=== PATIENT | male | born 1940 | race Caucasian/White ===

== ENCOUNTER → 2019-07-03 13:56 | Outpatient (BNVA) | payer MEDICARE, OTHER, SELFPAY | PROVIDERS: Visit Provider Nurse Practitioner Family | DX: I50.9 Heart failure, unspecified (principal); D64.9 Anemia, unspecified; I12.9 Hypertensive chronic kidney disease with stage 1 through stage 4 chronic kidney disease, or unspecified chronic kidney disease; N18.3 Chronic kidney disease, stage 3 (moderate); I48.91 Unspecified atrial fibrillation | CPT/HCPCS: 80053; 80061; 85025 ==

== ENCOUNTER → 2019-07-20 12:05 | Outpatient (BNVA) | payer MEDICARE, OTHER, SELFPAY | PROVIDERS: Visit Provider Internal Medicine Nephrology | DX: N18.9 Chronic kidney disease, unspecified (principal) | CPT/HCPCS: 80069; 82044; 82310; 83970; 85025 ==

== ENCOUNTER → 2020-01-25 09:44 | Outpatient (BNVA) | payer MEDICARE, OTHER, SELFPAY | PROVIDERS: Visit Provider Internal Medicine Nephrology | DX: N18.3 Chronic kidney disease, stage 3 (moderate) (principal); I12.9 Hypertensive chronic kidney disease with stage 1 through stage 4 chronic kidney disease, or unspecified chronic kidney disease; M10.9 Gout, unspecified | CPT/HCPCS: 80053; 80061; 81000; 82043; 82310; 83970; 84100; 84550; 85025 ==

== ENCOUNTER → 2020-01-31 10:07 | Outpatient (BNVA) | payer MEDICARE, OTHER, SELFPAY | PROVIDERS: Visit Provider Nurse Practitioner Family | DX: R73.9 Hyperglycemia, unspecified (principal) | CPT/HCPCS: 83036 ==

== ENCOUNTER 2020-02-19 13:55 | Emergency (ER) | payer MEDICARE, OTHER, SELFPAY ==
[2020-02-19 14:06] VITALS: BP 132/79; PULSE 84; RESP 16; TEMP 36.9; O2SAT 95; BMI 26.4
[2020-02-19 14:31] VITALS: BP 132/79; PULSE 83; RESP 20; O2SAT 95
--- NOTE | 2020-02-19 14:58 | CTR_ITS ---
PROCEDURE INFORMATION: Exam: CT Head Without Contrast Exam date and time: 02/19/2020 4:26 PM Age: 80 years old Clinical indication: Altered mental status/memory loss; Additional info: AMS TECHNIQUE: Imaging protocol: Computed tomography of the head without contrast. Radiation optimization: All CT scans at this facility use at least one of these dose optimization techniques: automated exposure control; mA and/or kV adjustment per patient size (includes targeted exams where dose is matched to clinical indication); or iterative reconstruction. COMPARISON: No relevant prior studies available. RADIATION DOSE METRICS: Total DLP (mGy-cm): 874.42 FINDINGS: Brain: No visible evidence of acute intracranial pathologic process, trauma, or hemorrhage. Mild cerebral arteriosclerosis. Cerebral and cerebral atrophy not inconsistent with the patient's chronological age. No visible generalized cerebral edema or demyelination. Mild small vessel ischemic disease. Unremarkable white matter. No mass effect. Cerebral ventricles: No ventriculomegaly. Bones/joints: Unremarkable. No acute fracture. Paranasal sinuses: Visualized sinuses are unremarkable. No fluid levels. Mastoid air cells: Visualized mastoid air cells are well aerated. Soft tissues: Unremarkable. CT/CT head wo con* [id number] IMPRESSION: No acute intracranial abnormality. Radiation Dose CTDIVOL = (mGy): DLP = 874.42 (mGy-cm)
--- NOTE | 2020-02-19 14:58 | XRR_ITS ---
PROCEDURE INFORMATION: Exam: XR Chest, 1 View Exam date and time: 02/19/2020 3:31 PM Age: 80 years old Clinical indication: Other: Altered mental status; Additional info: AMS TECHNIQUE: Imaging protocol: XR of the chest Views: 1 view. COMPARISON: CR Chest 1 [place] [id number] 07/04/2014 9:56 AM FINDINGS: Lungs: Unremarkable. No consolidation. Pleural space: Unremarkable. No pleural effusion. No pneumothorax. Heart/Mediastinum: Unremarkable. There is cardiomegaly for projection Bones/joints: Unremarkable. XR/XR chest 1V portable [id number] IMPRESSION: No acute findings. Cardiomegaly for projection
--- NOTE | 2020-02-19 14:59 | ECG_ITS ---
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 Measurements Intervals [place] Rate: 80 P: KS: -1 QRS: 95 QRSD: 102 T: -12 QT: 391 QTc: 454 Interpretive Statements ATRIAL FIBRILLATION BORDERLINE RIGHT AXIS DEVIATION [QRS AXIS > 90] MODERATE T-WAVE ABNORMALITY, CONSIDER INFERIOR ISCHEMIA [-0.1+ mV T WAVE IN II/aVF] Compared to ECG 06/04/2015 17:25:04 T-wave abnormality now present Possible ischemia now present Electronically Signed On 02-19-2020 17:58:59 CDT by Mimi Hanna M.D. [email or web address]/[id number] f
[2020-02-19 15:32] VITALS: BP 114/69; PULSE 82; RESP 18; O2SAT 95
[2020-02-19 15:42] LABS: Basophils % 0.5 %; Eosinophils # 0.1 10^3/uL (0.0-0.8); Hematocrit 36.8 % (42.0-52.0); Hemoglobin 11.6 g/dL (11.7-16.6); Lymphocytes # 1.1 10^3/uL (0.8-4.8); Lymphocytes % 13.5 %; Mean Corpuscular HGB Conc 31.5 g/dL (30.0-36.0); Mean Corpuscular Hemoglobin 29.7 pg (28.0-34.0); Mean Corpuscular Volume 94.1 fL (80-94); Mean Platelet Volume 9.6 fL (7.4-10.4); Monocytes # 0.7 10^3/uL (0.2-0.9); Monocytes % 8.5 %; Neutrophils # 6.37 10^3/uL (1.8-7.7); Nucleated Red Blood Cells % 0 %; Platelet Count 452 10^3/cmm (130-400); Red Blood Count 3.91 10^6/uL (4.1-5.3); Red Cell Distribution Width 13.5 % (12.1-15.1); White Blood Count 8.4 10^3/uL (4.0-10.0)
[2020-02-19 15:45] LABS: Add Urine Microscopic? NO
[2020-02-19 16:05] LABS: Alanine Aminotransferase 19 U/L (0-41); Albumin Level 3.9 g/dL (3.5-5.2); Alkaline Phosphatase 239 IU/L (40-130); Anion Gap 18.4 (5-19); Aspartate Amino Transferase 30 U/L (0-40); Blood Urea Nitrogen 31 mg/dL (8-23); C Reactive Protein 32.4 mg/L (0.0-4.9); Calcium 9.5 mg/dL (8.5-10.5); Carbon Dioxide 24 mmol/L (22-29); Chloride 102 mmol/L (98-107); Globulin 3.5 g/dL (1.3-4.6); Glucose 125 mg/dL (65-115); Osmolality Calculated 298 mOsm/kg (285-295); Potassium 4.4 mmol/L (3.5-5.1); Sodium 140 mmol/L (136-145); Total Bilirubin 0.6 mg/dL (0.15-1.2); Total Protein 7.4 g/dL (6.6-8.7)
[2020-02-19 16:06] LABS: Troponin(5th) Baseline 70 ng/L (0-15)
[2020-02-19 16:30] LABS: Bilirubin Urine Neg (Negative); Blood Urine Neg (Negative); Glucose Urine UA Norm (Normal); Ketones Urine Negative (Negative); Leukocyte Esterase Urine Negative (Negative); Nitrate Urine Negative (Negative); Protein Urine Neg (Negative); Specific Gravity, Urine 1.015 (1.005-1.030); Urine Appearance Clear (CLEAR); Urine Color Yellow (Yellow); Urobilinogen Urine Norm (Negative); pH Urine 5 (5-7)
--- NOTE | 2020-02-19 16:36 | ED_ITS ---
HPI - Altered Mental Status General: Chief Complaint: Altered Mental Status Stated Complaint: AMS Time Seen by Provider: 02/19/20 14:20 Source: patient Mode of arrival: EMS History of Present Illness: HPI narrative: Patient was brought in by his with concerns of change in mental status. She states that the symptoms started 3 days ago and consists of the patient raising his hands up. He has also been asking same questions several times. She denies any new focal weakness, no fever, no cough, no difficulty breathing. Patient denies any chest pain or any pain whatsoever. thinks he may have h allucinated a few times. Patient denies any urinary symptoms also. complaint: altered mental status Onset (ago): day(s) (3) Associated symptoms: Reports visual hallucinations; Deny delusions, depression, homicidal ideation, racing thoughts or suicidal idea tion Review of Systems General: Reports: 10 or more systems reviewed and unremarkable except in HPI and below Const: Denies: fever(s), chills or body aches Eyes: Denies: change in vision or blurry vision ENMT: Denies: throat pain, enlarged tonsils, odynophagia, hoarseness, mouth pain or swelling of lips/tongue Card: Denies: palpitations, irregular heart rhythm, edema or swelling of feet/ankles Resp: Denies: dyspnea, productive cough or non-productive cough GI: Denies: abdominal pain, nausea or vomiting : Denies: flank pain, dysuria, urinary frequency, urinary urgency or urinary hesitancy Musc: Denies: neck pain, back pain or extremity swelling Skin/Breast: Denies: rash, pruritus or erythema Neuro: Reports: confusion; Denies: headache(s), numbness in extremities or weakness in extremities Psych: Reports: visual hallucinations; Denies: depression, suicidal ideation or homicidal ideation Endo: Denies: polyuria, polydipsia or tired all the time PFSH ED PFSH: Medical History Afib Anemia CHF (congestive heart failure) CKD (chronic kidney disease) Hypertension RICA on CPAP Prostate CA Surgical History History of total right hip replacement Hx of abdominal prostatectomy Family History Family/Other Cancer Heart disease Social History Smoking and tobacco status: never smoked Second hand smoke exposure: No Alcohol intake: never Household members: spouse Marital status: service: No Current occupational status: retired History of recent travel: No Current gender identity: Male Physical Exam Const: COMMON NORMALS: no acute distress, average body habitus, patient oriented x3, no limitations, healthy appearing, alert and well nourished HENMT: COMMON NORMALS: normocephalic, atraumatic and moist oral mucous membranes HEAD & SCALP: normocephalic and atraumatic Eye: COMMON NORMALS: Equal, round and reactive pupils present, EOMs intact bilaterally, conjunctivae normal and no scleral icterus CONJUNCTIVA: Yes conjunctivae normal PUPIL: Yes Equal, round and reactive pupils present Neck/C-Spine: COMMON NORMALS: no meningeal signs and no JVD Resp: COMMON NORMALS: normal respiratory effort, No retractions, No use of accessory muscles, clear to auscultation bilaterally and percussion normal AUSCULTATION: clear to auscultation bilaterally PERCUSSION: percussion normal Cardio: COMMON NORMALS: no JVD, regular rate, regular rhythm, S1 normal heart sound present, S2 normal heart sound present, No gallops present (Cardio), No clicks present (Cardio), No murmurs present (Cardio), No rub (Cardio) and Peripheral pulses 2+ throughout RATE: regular rate RHYTHM: regular rhythm HEART SOUNDS: S1 normal heart sound present and S2 normal heart sound present PERIPHERAL PULSES: Peripheral pulses 2+ throughout GI: COMMON NORMALS: Normal to inspection, nondistended, normoactive bowel sounds present, Soft to palpation, non-tender, No hepatosplenomegaly present, no masses and no bruits PALPATION: Yes Soft to palpation and Yes No hepatosplenomegaly present Extremity: COMMON NORMALS: normal to inspection, full ROM, capillary refill normal, no calf tenderness and no pedal edema Neuro: COMMON NORMALS: patient oriented x3 SENSORIUM/ORIENTATION: Yes alert MENINGEAL SIGNS: Yes no meningeal signs Psych: THOUGHT CONTENT: No delusions Skin: COMMON NORMALS: no rashes or lesions noted, no wounds, turgor normal, no jaundice, no petechiae and no mottling GENERAL SKIN EXAM: no rashes or lesions noted and turgor normal Course Reevaluation(s): Reevaluation #1: Discussed his lab and imaging findings with the patient and his . Negative for acute findings. Baseline troponin elevated but to has a flat delta. Explained that I cannot find a medical reason for his behavioral change and is possible that this may be the onset of dementia. Advised that he follow-up with his primary care provider for he needs to return for any concerns. and patient voiced understanding and are in agreement with the plan. Time: 18:19 Vital Signs: Vital signs: Vital Signs Temperature 18 F L 02/19/20 18:57 Pulse Rate 69 02/19/20 18:57 Respiratory Rate 15 02/19/20 18:57 Blood Pressure 160/64 02/19/20 18:57 Pulse Oximetry 95 02/19/20 18:57 MDM - Altered Mental Status MDM Narrative: Medical decision making narrative: Patient was brought in by h is for concerns of altered mental status. In the emergency department evaluation was unremarkable, patient is alert and oriented, baseline troponin elevated but he has a flat 2-hour delta. I believe differentials include delirium or onset of dementia. I discussed this with his and asked her to observe him and follow-up with his primary care provider. He is to return for any concerns. Medical Records: Attestation: I reviewed the patient's medical records. Lab Data: Attestation: I reviewed the patient's lab results. Labs: Lab Results 02/19/20 02/19/20 02/19/20 Range/Units 14:22 15:20 15:20 WBC 8.4 (4.0-10.0) 10^3/ uL RBC 3.91 L (4.1-5.3) 10^6/u L Hgb 11.6 L (11.7-16.6) g/dL Hct 36.8 L (42.0-52.0) % MCV 94.1 H (80-94) fL MCH 29.7 (28.0-34.0) pg MCHC 31.5 (30.0-36.0) g/dL RDW 13.5 (12.1-15.1) % Plt Count 452 H (130-400) 10^3/c mm MPV 9.6 (7.4-10.4) fL Neut % (Auto) 76.0 % Lymph % (Auto) 13.5 % [place] % (Auto) 8.5 % Eos % (Auto) 1.0 % Baso % (Auto) 0.5 % Neut # (Auto) 6.37 (1.8-7.7) 10^3/u L Lymph # (Auto) 1.1 (0.8-4.8) 10^3/u L [place] # (Auto) 0.7 (0.2-0.9) 10^3/u L Eos # (Auto) 0.1 (0.0-0.8) 10^3/u L Baso # (Auto) 0.0 (0.0-0.1) 10^3/u L Nucleated RBC % (a uto) 0 % Nucleated RBCs # 0.0 /100WBC Sodium 140 (136-145) mmol/L Potassium 4.4 (3.5-5.1) mmol/L Chloride 102 (98-107) mmol/L Carbon Dioxide 24 (22-29) mmol/L Anion Gap 18.4 (5-19) BUN 31 H (8-23) mg/dL Creatinine 1.8 H (0.7-1.2) mg/dL GFR Calculation Not Reportable Glucose 125 H (65-115) mg/dL Calculated Osmolal ity 298 H (285-295) mOsm/k g Calcium 9.5 (8.5-10.5) mg/dL Total Bilirubin 0.6 (0.15-1.2) mg/dL AST 30 (0-40) U/L ALT 19 (0-41) U/L Alkaline Phosphata se 239 H (40-130) IU/L Troponin T Baselin e (0-15) ng/L Troponin T 120 Min edie (0-15) ng/L Delta Troponin T (0-10) ABS# C-Reactive Protein 32.4 H (0.0-4.9) mg/L Total Protein 7.4 (6.6-8.7) g/dL Albumin 3.9 (3.5-5.2) g/dL Globulin 3.5 (1.3-4.6) g/dL Urine Color Yellow (Yellow) Urine Appearance Clear (CLEAR) Urine pH 5 (5-7) Ur Specific Gravit y 1.015 (1.005-1.030) Urine Protein Neg (Negative) Urine Glucose (UA) Norm (Normal) Urine Ketones Negative (Negative) Urine Blood Neg (Negative) Urine Nitrate Negative (Negative) Urine Bilirubin Neg (Negative) Urine Urobilinogen Norm (Negative) mg/dL Ur Leukocyte Saadia ase Negative (Negative) 02/19/20 02/19/20 Range/Units 15:20 17:15 WBC (4.0-10.0) 10^3/ uL RBC (4.1-5.3) 10^6/u L Hgb (11.7-16.6) g/dL Hct (42.0-52.0) % MCV (80-94) fL MCH (28.0-34.0) pg MCHC (30.0-36.0) g/dL RDW (12.1-15.1) % Plt Count (130-400) 10^3/c mm MPV (7.4-10.4) fL Neut % (Auto) % Lymph % (Auto) % [place] % (Auto) % Eos % (Auto) % Baso % (Auto) % Neut # (Auto) (1.8-7.7) 10^3/u L Lymph # (Auto) (0.8-4.8) 10^3/u L Col[place] # (Auto) (0.2-0.9) 10^3/u L Eos # (Auto) (0.0-0.8) 10^3/u L Baso # (Auto) (0.0-0.1) 10^3/u L Nucleated RBC % (a uto) % Nucleated RBCs # /100WBC Sodium (136-145) mmol/L Potassium (3.5-5.1) mmol/L Chloride (98-107) mmol/L Carbon Dioxide (22-29) mmol/L Anion Gap (5-19) BUN (8-23) mg/dL Creatinine (0.7-1.2) mg/dL GFR Calculation Glucose (65-115) mg/dL Calculated Osmolal ity (285-295) mOsm/k g Calcium (8.5-10.5) mg/dL Total Bilirubin (0.15-1.2) mg/dL AST (0-40) U/L ALT (0-41) U/L Alkaline Phosphata se (40-130) IU/L Troponin T Baselin e 70 H (0-15) ng/L Troponin T 120 Min edie 74.21 H (0-15) ng/L Delta Troponin T 4.21 (0-10) ABS# C-Reactive Protein (0.0-4.9) mg/L Total Protein (6.6-8.7) g/dL Albumin (3.5-5.2) g/dL Globulin (1.3-4.6) g/dL Urine Color (Yellow) Urine Appearance (CLEAR) Urine pH (5-7) Ur Specific Gravit y (1.005-1.030) Urine Protein (Negative) Urine Glucose (UA) (Normal) Urine Ketones (Negative) Urine Blood (Negative) Urine Nitrate (Negative) Urine Bilirubin (Negative) Urine Urobilinogen (Negative) mg/dL Ur Leukocyte Saadia ase (Negative) Imaging Data^: CXR: Attestation: I personally reviewed and interpreted this imaging study as follows: Radiologist's impression: [address] [address] XRay Report Signed Patient: Santiago Brumfield #: [id number] : 8Acct#:[id number] Age/Sex: 80 / MADM Date: 02/19/20 [facility] Dr: Ordering Provider/Ordering MD: Grant Wu MD, [facility] [place] Date of Service: 02/19/20 Procedure(s): XR chest 1V portable [id number] Accession Number(s): [id number] Report Number: [id number] PROCEDURE INFORMATION: Exam: XR Chest, 1 View Exam date and time: 02/19/2020 3:31 PM Age: 80 years old Clinical indication: Other: Altered mental status; Additional info: AMS TECHNIQUE: Imaging protocol: XR of the chest Views: 1 view. COMPARISON: CR Chest 1 [place] [id number] 07/04/2014 9:56 AM FINDINGS: Lungs: Unremarkable. No consolidation. Pleural space: Unremarkable. No pleural effusion. No pneumothorax. Heart/Mediastinum: Unremarkable. There is cardiomegaly for projection Bones/joints: Unremarkable. XR/XR chest 1V portable [id number] IMPRESSION: No acute findings. Cardiomegaly for projection Dictated By:Eric Delong Signed By:Selena Delong Date/Time:02/19/20 1544 DD/ 1543 CT Head: Attestation: I personally reviewed and interpreted this imaging study as follows: Radiologist's impression: [facility] [address] [place] [address] CT Scan Report Signed Patient: Santiago Brumfield #: [id number] : 8Acct#:[id number] Age/Sex: 80 / MADM Date: 02/19/20 Loc: ERRoom/Bed: Attending Dr: Ordering Provider/Ordering MD: Grant Wu MD, [facility] [place] Date of Service: 02/19/20 Procedure(s): CT head wo con* [id number] Accession Number(s): [id number] Report Number: [id number] PROCEDURE INFORMATION: Exam: CT Head Without Contrast Exam date and time: 02/19/2020 4:26 PM Age: 80 years old Clinical indication: Altered mental status/memory loss; Additional info: AMS TECHNIQUE: Imaging protocol: Computed tomography of the head without contrast. Radiation optimization: All CT scans at this facility use at least one of these dose optimization techniques: automated exposure control; mA and/or kV adjustment per patient size (includes targeted exams where dose is matched to clinical indication); or iterative reconstruction. COMPARISON: No relevant prior studies available. RADIATION DOSE METRICS: Total DLP (mGy-cm): 874.42 FINDINGS: Brain: No visible evidence of acute intracranial pathologic process, trauma, or hemorrhage. Mild cerebral arteriosclerosis. Cerebral and cerebral atrophy not inconsistent with the patient's chronological age. No visible generalized cerebral edema or demyelination. Mild small vessel ischemic disease. Unremarkable white matter. No mass effect. Cerebral ventricles: No ventriculomegaly. Bones/joints: Unremarkable. No acute fracture. Paranasal sinuses: Visualized sinuses are unremarkable. No fluid levels. Mastoid air cells: Visualized mastoid air cells are well aerated. Soft tissues: Unremarkable. CT/CT head wo con* [id number] IMPRESSION: No acute intracranial abnormality. Radiation Dose CTDIVOL = (mGy): DLP = 874.42 (mGy-cm) Dictated By:Rbuen Merritt Signed By:Ruben MerrittSignryan Date/Time:02/19/201736 DD/ 35 EKG Data^: EKG 1: Attestation: I personally reviewed and interpreted this EKG as follows: EKG interpretation date: 02/19/20 EKG interpretation time: 15:11 Prior EKG tracings: not available for review Interpretation: Atrial fibrillation. Heart rate [address] changes. No STEMI EKG 2: Attestation: I personally reviewed and interpreted this EKG as follows: EKG interpretation date: 02/19/20 EKG interpretation time: 17:42 Prior EKG tracings: available for review Interpretation: Atrial fibrillation Heart rate [address] changes. No STEMI. No significant change from earlier today. Discharge Plan Discharge Patient Disposition: Home Clinical Impression: Altered mental status Qualifiers: Altered mental status type: delirium Qualified Code(s): R41.0 - Disorientation, unspecified Condition: Stable Prescriptions: Continued ferrous gluconate 324 mg (37.5 mg iron) tablet 324 mg PO BID RF: 0 acetaminophen [Tylenol Extra Strength] 500 mg tablet 1,000 mg PO PRN RF: 0 cetirizine 10 mg tablet 10 mg PO DAILY PRN (Reason: Allergy Symptoms) RF: 0 omega-3 fatty acids 1,000 mg capsule 2,000 mg PO DAILY RF: 0 ascorbic acid (vitamin C) 1,000 mg tablet 1 gm PO DAILY RF: 0 allopurinol 100 mg tablet 100 mg PO DAILY Qty: 30 RF: 5 omeprazole 20 mg capsule,delayed release(DR/EC) 20 mg PO BID Qty: 60 RF: 5 lisinopril 10 mg tablet 10 mg PO DAILY Qty: 30 RF: 5 fluticasone propionate 50 mcg/actuation spray,suspension 2 spray INTRANASAL DAILY PRN (Reason: allergy symptoms) Qty: 9.9 RF: 5 metoprolol succinate 25 mg tablet extended release 24 hr 12.5 mg PO DAILY Qty: 45 RF: 1 furosemide 40 mg tablet 40 mg PO QAM RF: 0 Discharge Orders: Discharge Order (Routine); Ordered 02/19/20 Ordered By: Grant Wu Discharge Diet: Usual diet Discharge Activity: Increase activity as tolerated Patient Instructions: Acute Delirium (ED) Activity Restrictions/Additional Instructions: Return for any new or worsening symptoms. Follow-up with his primary care provider within 3 days. Observe him to see any changes in his behavior, if he worsens or you have any concerns please return for further evaluation Discharge Date/Time: 02/19/20 19:00 Coding Level of Care Code ED Etl Data Architect for Georges Mensah
--- NOTE | 2020-02-19 16:59 | ECG_ITS ---
[facility] Test Date: 2020-02-19 Pat Name: Santiago Brumfield Department: Room: Gender: Male Drama Director: : 1940 Requested By: Grant Wu I Order Number: [id number] Rosa MD: Mimi Hanna M.D. Measurements Intervals [place] Rate: 82 P: MD: -1 QRS: 83 QRSD: 94 T: -40 QT: 380 QTc: 445 Interpretive Statements SUPRAVENTRICULAR RHYTHM LOW QRS VOLTAGE IN EXTREMITY LEADS [QRS DEFLECTION < 0.5 mV IN LIMB LEADS] ST DEVIATION AND MODERATE T-WAVE ABNORMALITY, CONSIDER INFERIOR ISCHEMIA [-0.1+ mV T WAVE IN II/aVF] Compared to ECG 02/19/2020 15:11:31 Supraventricular rhythm now present Low QRS voltage now present Atrial fibrillation no longer present T-wave abnormality still present Possible ischemia still present Electronically Signed On 02-19-2020 18:11:28 CDT by Mimi Hanna M.D. [email or web address]/[id number] sunil
[2020-02-19 17:40] VITALS: BP 126/74; PULSE 79; RESP 18; O2SAT 95
[2020-02-19 17:43] LABS: Troponin 5 2HR 74.21 ng/L (0-15); Troponin 5 2HR Delta 4.21 ABS# (0-10)
[2020-02-19 18:57] VITALS: BP 160/64; PULSE 69; RESP 15; TEMP -7.7; TEMP 18; O2SAT 95
== END 2020-02-19 19:00 | disposition home or self-care (01) ==
PROVIDERS: Emergency Provider Family Medicine
DX: R41.0 Disorientation, unspecified (principal); I48.91 Unspecified atrial fibrillation; I11.0 Hypertensive heart disease with heart failure; I50.9 Heart failure, unspecified; Z85.46 Personal history of malignant neoplasm of prostate
CPT/HCPCS: 12345; 36415; 70450; 71045; 80053; 81003; 84484; 85025; 86140; 93005; 99283

== ENCOUNTER 2021-12-05 06:04 | Outpatient (CLI) | payer MEDICARE, OTHER, SELFPAY ==
--- NOTE | 2021-12-05 06:49 | CT_ITS ---
WS: [id number] CT ABDOMEN AND PELVIS NONCONTRAST HISTORY: ABDOMINAL SWELLING TECHNIQUE: Imaging performed through the abdomen and pelvis. Coronal and sagittal reformats are submi tted. All CT scans at [facility] use at least one of these dose optimization techniques: auto mated exposure control; mA and/or kV adjustment per patient size (includes targeted exams where dose is matched to clinical indication); or iterative reconstruction. DLP: 1205.03 mGy.cm COMPARISON: 07/01/2009 Lower thorax: Small bilateral pleural effusions with compressive atelectasis at the lung bases. Moder ate enlargement of the heart. Liver: Small liver with a nodular surface. No bile duct dilatation. Gallbladder: Present and difficult to visualize as there is a large amount of adjacent fluid of simil ar attenuation. Pancreas: Normal size and attenuation. Normal pancreatic duct. No pancreatitis or mass. Spleen: Normal. Adrenal glands: Normal. No mass. Right kidney: Mild atrophy of the RIGHT kidney. Kidney measures 8.5 cm in length. No mass or obstruct ion. Left kidney: Mild atrophy of the LEFT kidney. Kidney measures 7.8 cm in length. No obstruction. Aorta: Mild atherosclerosis abdominal aorta with no aneurysm. There is a very large amount of intraperitoneal fluid. Fluid surrounds the visceral organs and extend s into the lesser sac and through the mesentery. There are a few areas of the visualized omentum with extensive perinephric with increased stranding and possible caking of omental carcinomatosis. GI tract: Stomach is moderately well distended with contrast. No small bowel obstruction. The small b owel and colon are being displaced into the central abdomen by the large amount of fluid. No obstruct ion. Abdominal wall: Marked protrusion of the abdominal wall due to the large amount of ascites. Soft tiss ue edema and anasarca. Pelvis: Free fluid extends into the pelvis. There is additional anasarca in the soft tissues of the p antolin. Portions of the pelvis including the rectum and distal colon or be obscured by artifact relate d to prostate seed implants and the RIGHT hip arthroplasty. Osseous structures: Stable sclerotic lesion in the LEFT pubic rami. Sclerotic lesion extends in the L EFT parasymphyseal region and along the inferior ramus. Patient does have a history of prostate cance r this is probably related to prostate cancer. Similar to the study of 07/01/2019. CT/CT abdomen pelvis wo con [id number] IMPRESSION: 1. Large amount of peritoneal ascites. On this unenhanced study there are casper ges that are suspicious for peritoneal carcinomatosis. This omental thickening could also be related to infiltrating edema. This would be better evaluated on a follow-up CT with IV contrast. Paracentesis with evaluation of the fluid for neoplastic disease recommended. 2. Liver appears cirrhotic. 3. Small bilateral pleural effusions. 4. Cardiomegaly. 5. Mild bilateral renal atrophy. 6. Stable sclerotic lesion in the LEFT parasymphyseal region and LEFT inferior pubic rami. 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 Similar to 2009.
[2021-12-05] MEDS: barium sulfate 450 mL Oral Susp PO (08:03)
== END 2021-12-05 06:05 | disposition home or self-care (01) ==
LOC: RAD 06:05
PROVIDERS: PCP Nurse Practitioner Family; Visit Provider Nurse Practitioner Family
DX: R19.07 Generalized intra-abdominal and pelvic swelling, mass and lump (principal); I51.7 Cardiomegaly; J90 Pleural effusion, not elsewhere classified; N26.1 Atrophy of kidney (terminal)
CPT/HCPCS: 74176

== ENCOUNTER → 2021-12-09 10:55 | Outpatient (BNVA) | payer MEDICARE, OTHER, SELFPAY | PROVIDERS: PCP Nurse Practitioner Family; Visit Provider Surgery | DX: R18.8 Other ascites (principal); D64.9 Anemia, unspecified; R97.8 Other abnormal tumor markers | CPT/HCPCS: 36415; 80076; 83615; 86301; 99204 ==

== ENCOUNTER 2021-12-10 11:49 | Day surgery (SDC) | payer MEDICARE, OTHER, SELFPAY ==
[2021-12-09 13:45] VITALS: BMI 28.5
[2021-12-10 12:05] VITALS: BP 109/71; PULSE 75; RESP 18; TEMP 36.4; O2SAT 96
--- NOTE | 2021-12-10 12:17 | US_ITS ---
WS: [id number] ULTRASOUND-GUIDED THERAPEUTIC AND DIAGNOSTIC PARACENTESIS Procedure, risks, and complications have been explained to the patient. Consent is obtained. Utilizing aseptic technique and 1% buffered lidocaine, a small dermatome was made through which a 5 F rench Yueh catheter was inserted. Approximately 8000 ml of clear peritoneal fluid was obtained witho ut difficulty. No complications encountered. Peritoneal fluid specimen collected for analysis. US/US paracentesis abd w [id number] IMPRESSION: Uncomplicated paracentesis yielding 8000 ml of peritoneal fluid. Additional flu id remains. No additional fluid removed today as this is the patient's first pa racentesis. Peritoneal fluid specimen collected for analysis.
[2021-12-10 12:53] LABS: INR 1.09 (0.8-1.2)
[2021-12-10 14:32] LABS: Apprearance, Body Fluid CLEAR; Color, Body Fluid YELLOW
[2021-12-10 14:33] LABS: Body Fluid WBC 0 /uL; RBC, Body Fluid 0 10^3/uL
[2021-12-10 15:12] LABS: Fluid Alkaline Phos. 20 IU/L
[2021-12-10 15:13] LABS: Albumin Body Fluid 2.3 g/dL; Amylase Body Fluid 22 U/L; Cholesterol Body Fluid 59 mg/dL (0-200); LDH Body Fluid 77 U/L; PATH Referral YES; Total Protein Body Fluid 3.3 g/dL; Triglycerides Body Fluid 32 mg/dL (0-150); Uric Acid Body Fluid 4 mg/dL
[2021-12-10 20:17] LABS: Cyto Order Verification Order Verified
== END 2021-12-10 14:27 | disposition home or self-care (01) ==
LOC: GILAB 11:52
PROVIDERS: Radiology Diagnostic Radiology; PCP Nurse Practitioner Family; Visit Provider Surgery
PROC: (CPT 49082; principal; 2021-12-10 13:15)
DX: R18.8 Other ascites (principal)
CPT/HCPCS: 36415; 49083; 80503; 82042; 82150; 82378; 82465; 82945; 83615; 83986; 84075; 84157; 84315; 84478; 84560; 85610; 87015; 87070; 87075; 87116; 87205; 87206; 87801; 88108; 88305; 89050

== ENCOUNTER 2022-02-23 08:36 | Day surgery (SDC) | payer MEDICARE, OTHER, SELFPAY ==
[2022-02-20 13:37] VITALS: BMI 25.1
--- NOTE | 2022-02-23 08:58 | US_ITS ---
WS: [id number] Abdominal ultrasound, limited. History: Evaluate for ascites. Comparison: 12/10/2021 All 4 quadrants are imaged by ultrasound to evaluate for ascites. Large amount of intraperitoneal flu id. Cirrhotic appearing liver. US/US abdomen limited [id number] IMPRESSION: Large amount of ascites.
[2022-02-23 09:22] VITALS: BP 112/74; PULSE 70; RESP 18; TEMP 36.5; O2SAT 96
[2022-02-23 11:30] VITALS: BP 103/60; PULSE 70; RESP 16; O2SAT 96
--- NOTE | 2022-02-23 11:58 | PM.ACPR ---
Acute Procedures Paracentesis: Time out performed: Yes Indication: Ascites Procedure: therapeutic paracentesis Location: LLQ Local anesthetic used: lidocaine 1% Amount of anesthesia used (ml): 5 Preparation: sterile prep and drape and 11 blade used to make michael in skin Amount of fluid obtained (ml): 13,000 Fluid: clear Post procedure exam: awake, alert, normal BP, normal HR and normal SpO2 Patient tolerated procedure: well and no complications
== END 2022-02-23 11:50 | disposition home or self-care (01) ==
PROVIDERS: PCP Nurse Practitioner Family; Visit Provider Internal Medicine
PROC: (CPT 49082; principal; 2022-02-23 09:30)
DX: R18.8 Other ascites (principal)
CPT/HCPCS: 49082; 76705

== ENCOUNTER 2022-04-13 16:03 | Observation (INO) | payer MEDICARE, OTHER, SELFPAY ==
[2022-04-13] VITALS (11 sets, daily range): BP systolic 107–130; BP diastolic 68–78; PULSE 71–76; RESP 14–25; TEMP 36.1–36.7; O2SAT 87–98; BMI 27.0; BMI 27.2
--- NOTE | 2022-04-13 16:10 | ECG_ITS ---
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 Measurements Intervals [place] Rate: 75 P: 138 WA: 68 QRS: 264 QRSD: 102 T: 102 QT: 391 QTc: 437 Interpretive Statements SINUS RHYTHM WITH SHORT WA INTERVAL INCOMPLETE RIGHT BUNDLE BRANCH BLOCK [90+ ms QRS DURATION, TERMINAL R IN V1/V2, 40+ ms S IN I/aVL/V4/V5/V6] POSSIBLE ANTERIOR MYOCARDIAL INFARCTION , OF INDETERMINATE AGE [30 ms Q WAVE IN V3/V4, OR R < 0.2 mV IN V4] Compared to ECG 02/19/2020 17:42:00 Short WA interval now present Incomplete right bundle-branch block now present Myocardial infarct finding now present Supraventricular rhythm no longer present Possible ischemia no longer present Electronically Signed On 04-13-2022 18:17:39 SENIOR PRODUCT DEVELOPMENT SCIENTIST by Harry Alberts M.D. [id number]
--- NOTE | 2022-04-13 16:17 | XRR_ITS ---
PROCEDURE INFORMATION: Exam: XR Chest Exam date and time: 04/13/2022 5:42 PM Age: 82 years old Clinical indication: Cough; Additional info: Dyspnea/cough TECHNIQUE: Imaging protocol: Radiologic exam of the chest. Views: 1 view. COMPARISON: CR XR chest 1V portable [id number] 02/19/2020 3:21 PM FINDINGS: Lungs: No consolidation. Pleural spaces: Bilateral small volume pleural effusions. No pneumothorax. Heart/Mediastinum: Mild cardiomegaly. Bones/joints: Unremarkable. XR/XR chest 1V portable [id number] IMPRESSION: Mild cardiomegaly and bilateral small volume pleural effusions.
--- NOTE | 2022-04-13 16:45 | US_ITS ---
WS: [id number] Abdominal ultrasound, limited. History: Evaluate for ascites. Comparison: 02/23/2022 All 4 quadrants are imaged by ultrasound to evaluate for ascites. There is a large amount of peritone al ascites within all 4 quadrants of the abdomen. US/US abdomen lmt fluid [id number] IMPRESSION: Large amount of peritoneal ascites.
--- NOTE | 2022-04-13 16:45 | W.ED.SOB ---
Documented by User: Martin Souza DO 04/15/22 07:45 HPI - SOB/Dyspnea General: Chief Complaint: Shortness of Breath/Dyspnea Stated Complaint: SOB Time Seen by Provider: 04/13/22 16:16 Source: patient and family Mode of arrival: ambulatory History of Present Illness: HPI Narrative: 82-year-old male presents to the emergency room with complaints of significant abdominal distention difficulty breathing. Patient has end-stage renal disease and and liver failure. He has a history of CHF he is gained significant weight in the last couple of days. He has been evaluated for transplant but did not meet eligibility because of his age. MD elicited complaint: shortness of breath and cough Pertinent past history: COPD Onset (ago): hour(s) Timing: constant Severity: severe Exacerbating factors: lying flat and exertion Relieving factors: rest Known history of: congestive heart failure and other (End-stage liver disease, end-stage renal disease) Associated symptoms: Reports abdominal pain; Deny chest congestion, chest pain, cough, diaphoresis, dizziness, extremity pain, fever(s), hemoptysis, lightheadedness, myalgias, nausea, orthopnea, palpitations, paresthesias, polydipsia, polyuria, rash, sense of impending doom, syncope or vomiting Treatment prior to arrival: none Review of Systems Const: Denies: fever(s), chills, fatigue, malaise or diaphoresis ENMT: Denies: throat pain, ear or mastoid pain, nasal discharge or nasal congestion Card: Denies: chest pain, palpitations, lightheadedness, syncope or orthopnea Resp: Reports: dyspnea; Denies: productive cough, non-productive cough, wheezing, hemoptysis or chest congestion GI: Reports: abdominal pain; Denies: nausea or vomiting : Denies: flank pain, dysuria, urinary frequency or urinary urgency Musc: Denies: neck pain, back pain or extremity pain Skin/Breast: Denies: rash or pruritus Neuro: Denies: dizziness Endo: Denies: polyuria or polydipsia PFSH ED PFSH: Medical History Abdominal ascites Abdominal ascites Afib Anemia CHF (congestive heart failure) CKD (chronic kidney disease) Hypertension Idiopathic cirrhosis Liver cirrhosis RICA on CPAP Prostate CA Surgical History History of colonoscopy History of total right hip replacement Hx of abdominal prostatectomy Hx of knee surgery Family History Family/Other Cancer Heart disease Social History Smoking and tobacco status: never smoked Second hand smoke exposure: No Alcohol intake: never Household members: spouse Marital status: service: No Current occupational status: retired History of recent travel: No Current gender identity: Male Physical Exam Const: GENERAL APPEARANCE: cooperative and comfortable ORIENTATION/CONSCIOUSNESS: Yes awake, Yes oriented to person, Yes oriented to place and Yes oriented to time HENMT: COMMON NORMALS: normocephalic, atraumatic and hearing grossly normal bilaterally HEAD & SCALP: normocephalic and atraumatic Resp: COMMON NORMALS: normal respiratory effort, No retractions, No use of accessory muscles and clear to auscultation bilaterally AUSCULTATION: clear to auscultation bilaterally Cardio: COMMON NORMALS: regular rate, regular rhythm and No murmurs present (Cardio) RATE: regular rate RHYTHM: regular rhythm GI: INSPECTION: Yes abdominal distension and Yes Fluid wave present PERCUSSION: dullness to percussion and Fluid wave present Extremity: COMMON NORMALS: normal to inspection, capillary refill normal, no clubbing, cyanosis or edema, no calf tenderness and no pedal edema Neuro: SENSORIUM/ORIENTATION: Yes oriented to person, Yes oriented to place and Yes oriented to time Skin: COMMON NORMALS: no rashes or lesions noted GENERAL SKIN EXAM: no rashes or lesions noted Course Vital Signs: Vital signs: Vital Signs Temperature 98.0 F 04/14/22 12:00 Pulse Rate 76 04/14/22 16:27 Respiratory Rate 16 04/14/22 12:00 Blood Pressure 106/66 04/14/22 12:00 Pulse Oximetry 95 04/14/22 12:00 Oxygen Delivery Me thod 04/14/22 12:00 Oxygen Flow Rate 2 04/13/22 16:17 MDM - SOB/Dyspnea Medical Decision Making Care signed out to Dr. Molina at change of shift. See final notes for diagnosis and disposition. Lab Data 04/13/22 16:40 04/13/22 16:40 Labs/Radiology: Radiology Impressions Chest X-Ray 04/13/22 16:17 IMPRESSION: Mild cardiomegaly and bilateral small volume pleural effusions. Abdomen Ultrasound 04/13/22 16:45 IMPRESSION: Large amount of peritoneal ascites. Paracentesis Ultrasound 04/14/22 19:53 IMPRESSION: Uncomplicated [place] [id number] [place] Laboratory Results WBC 7.9 10^3/uL (4.0-10.0) 04/13/22 16:40 RBC 3.00 10^6/uL (4.1-5.3) L 04/13/22 16:40 Hgb 9.4 g/dL (11.7-16.6) L 04/13/22 16:40 Hct 29.8 % (42.0-52.0) L 04/13/22 16:40 MCV 99.3 fl (80-94) H 04/13/22 16:40 MCH 31.3 pg (28.0-34.0) 04/13/22 16:40 MCHC 31.5 g/dL (30.0-36.0) 04/13/22 16:40 RDW 15.2 % (12.1-15.1) H 04/13/22 16:40 Plt Count 298 10^3/cmm (130-400) 04/13/22 16:40 MPV 10.2 fL (7.4-10.4) 04/13/22 16:40 Neut % (Auto) 75.4 % 04/13/22 16:40 Lymph % (Auto) 12.7 % 04/13/22 16:40 [place] % (Auto) 7.6 % 04/13/22 16:40 Eos % (Auto) 3.2 % 04/13/22 16:40 Baso % (Auto) 0.6 % 04/13/22 16:40 Neut # (Auto) 5.98 10^3/uL (1.8-7.7) 04/13/22 16:40 Lymph # (Auto) 1.0 10^3/uL (0.8-4.8) 04/13/22 16:40 [place] # (Auto) 0.6 10^3/uL (0.2-0.9) 04/13/22 16:40 Eos # (Auto) 0.3 10^3/uL (0.0-0.8) 04/13/22 16:40 Baso # (Auto) 0.1 10^3/uL (0.0-0.1) 04/13/22 16:40 Nucleated RBC % (auto) 0 % 04/13/22 16:40 Nucleated RBCs # 0.0 /100WBC 04/13/22 16:40 PT 14.70 SECONDS (12.1-14.9) 04/13/22 17:25 INR 1.12 (0.8-1.2) 04/13/22 17:25 APTT 28.5 SECONDS (23.9-36.7) 04/13/22 17:25 Specimen Type Arterial 04/13/22 16:44 Sample Site Radial, left 04/13/22 16:44 ABG pH 7.41 (7.35-7.45) 04/13/22 16:44 ABG pCO2 40.4 mmHg (35-45) 04/13/22 16:44 ABG pO2 76.6 mmHg (80.0-100.0) L 04/13/22 16:44 ABG HCO3 25.5 mmol/L (22-26) 04/13/22 16:44 ABG O2 Saturation 97.2 04/13/22 16:44 ABG Base Excess 0.7 mmol/L (-2.0-2.0) 04/13/22 16:44 Hunter Test Pos 04/13/22 16:44 A-a O2 Gradient 3.1 mmHg (5-10) L 04/13/22 16:44 Hematocrit 28.9 % (42-52) L 04/13/22 16:44 Hgb O2 Saturation 95.5 % (95-100) 04/13/22 16:44 Carboxyhemoglobin 1.2 %THgb (0.4-20.1) 04/13/22 16:44 Methemoglobin 0.4 % (0.4-1.5) 04/13/22 16:44 Total Hemoglobin 9.4 g/dL (14-18) L 04/13/22 16:44 Sodium 136.0 mmol/L (131-143) 04/13/22 16:44 Potassium 3.9 mmol/L (3.5-5.0) 04/13/22 16:44 Glucose 117.0 mg/dL (70-115) H 04/13/22 16:44 Ionized Calcium 1.2 mmol/L (1.1-1.4) 04/13/22 16:44 O2 Delivery Device Room air 04/13/22 16:44 FiO2 21.0 % 04/13/22 16:44 Aircraft Body Repairer ID Cak 04/13/22 16:44 Sodium 137 mmol/L (136-145) 04/13/22 16:40 Potassium 3.9 mmol/L (3.5-5.1) 04/13/22 16:40 Chloride 100 mmol/L (98-107) 04/13/22 16:40 Carbon Dioxide 27 mmol/L (22-29) 04/13/22 16:40 Anion Gap 13.9 (5-19) 04/13/22 16:40 BUN 24 mg/dL (8-23) H 04/13/22 16:40 Creatinine 1.2 mg/dL (0.7-1.2) 04/13/22 16:40 GFR Calculation Not Reportable 04/13/22 16:40 Glucose 107 mg/dL (65-115) 04/13/22 16:40 Calculated Osmolality 289 mOsm/kg (285-295) 04/13/22 16:40 Lactic Acid 1.8 mmol/L (0.5-2.2) 04/13/22 16:40 Calcium 8.9 mg/dL (8.5-10.5) 04/13/22 16:40 Total Bilirubin 0.4 mg/dL (0.15-1.2) 04/13/22 16:40 AST 8 U/L (0-40) 04/13/22 16:40 ALT < 5 U/L (0-41) 04/13/22 16:40 Alkaline Phosphatase 213 U/L (40-130) H 04/13/22 16:40 Ammonia 20 umol/L (16-60) 04/13/22 17:10 Creatine Kinase 54 U/L (39-308) 04/13/22 16:40 Troponin T Baseline 82 ng/L (0-15) H 04/13/22 16:40 NT-Pro-B Natriuret Pep 20801 pg/mL (0-450) H 04/13/22 16:40 Total Protein 5.9 g/dL (6.6-8.7) L 04/13/22 16:40 Albumin 3.1 g/dL (3.5-5.2) L 04/13/22 16:40 Globulin 2.8 g/dL (1.3-4.6) 04/13/22 16:40 Fluid Color Yellow 04/13/22 10:15 Fluid Appearance Clear 04/13/22 10:15 Fluid Specific Grav 1.010 04/13/22 10:15 Fluid WBC 126 /uL 04/13/22 10:15 Fluid RBC 0 10^3/uL 04/13/22 10:15 Fld Polynuclear WBCs # 0.016 04/13/22 10:15 Fld Polynuclear WBCs % 12.700 % 04/13/22 10:15 Fl Mononucl WBCs #(Auto) 0.110 04/13/22 10:15 Fl Mononuclear % Auto 87.300 % 04/13/22 10:15 Fluid Albumin 1.9 g/dL 04/13/22 10:15 Discharge Plan Discharge Patient Disposition: Admitted As Inpatient Admit Provider: Brigido Low Clinical Impression: Idiopathic cirrhosis, Abdominal ascites, Dyspnea Condition: Stable Discharge Diet: Regular Coding Level of Care Code ED Production Machinist for Chg Fwd Exam Detailed Documented by User: Kavitha Molina MD 04/13/22 18:19 HPI - SOB/Dyspnea General: Chief Complaint: Shortness of Breath/Dyspnea Stated Complaint: SOB Time Seen by Provider: 04/13/22 16:16 PFSH ED PFSH: Medical History Abdominal ascites Abdominal ascites Afib Anemia CHF (congestive heart failure) CKD (chronic kidney disease) Hypertension Idiopathic cirrhosis Liver cirrhosis RICA on CPAP Prostate CA Surgical History History of colonoscopy History of total right hip replacement Hx of abdominal prostatectomy Hx of knee surgery Family History Family/Other Cancer Heart disease Social History Smoking and tobacco status: never smoked Second hand smoke exposure: No Alcohol intake: never Household members: spouse Marital status: service: No Current occupational status: retired History of recent travel: No Current gender identity: Male Course Vital Signs: Vital signs: Vital Signs Temperature 98.0 F 04/14/22 12:00 Pulse Rate 76 04/14/22 16:27 Respiratory Rate 16 04/14/22 12:00 Blood Pressure 106/66 04/14/22 12:00 Pulse Oximetry 95 04/14/22 12:00 Oxygen Delivery Me thod 04/14/22 12:00 Oxygen Flow Rate 2 04/13/22 16:17 MDM - SOB/Dyspnea Medical Decision Making Care signed out to Dr. Molina at change of shift. See final notes for diagnosis and disposition. Patient presents here with abdominal swelling from ascites likely from his cirrhosis that is causing shortness of breath will admit at this time for his dyspnea and he does not need paracentesis Lab Data 04/13/22 16:40 04/13/22 16:40 Labs/Radiology: Radiology Impressions Chest X-Ray 04/13/22 16:17 IMPRESSION: Mild cardiomegaly and bilateral small volume pleural effusions. Abdomen Ultrasound 04/13/22 16:45 IMPRESSION: Large amount of peritoneal ascites. Paracentesis Ultrasound 04/14/22 19:53 IMPRESSION: Uncomplicated ultrasound[place] [id number] [place] Laboratory Results WBC 7.9 10^3/uL (4.0-10.0) 04/13/22 16:40 RBC 3.00 10^6/uL (4.1-5.3) L 04/13/22 16:40 Hgb 9.4 g/dL (11.7-16.6) L 04/13/22 16:40 Hct 29.8 % (42.0-52.0) L 04/13/22 16:40 MCV 99.3 fl (80-94) H 04/13/22 16:40 MCH 31.3 pg (28.0-34.0) 04/13/22 16:40 MCHC 31.5 g/dL (30.0-36.0) 04/13/22 16:40 RDW 15.2 % (12.1-15.1) H 04/13/22 16:40 Plt Count 298 10^3/cmm (130-400) 04/13/22 16:40 MPV 10.2 fL (7.4-10.4) 04/13/22 16:40 Neut % (Auto) 75.4 % 04/13/22 16:40 Lymph % (Auto) 12.7 % 04/13/22 16:40 [place] % (Auto) 7.6 % 04/13/22 16:40 Eos % (Auto) 3.2 % 04/13/22 16:40 Baso % (Auto) 0.6 % 04/13/22 16:40 Neut # (Auto) 5.98 10^3/uL (1.8-7.7) 04/13/22 16:40 Lymph # (Auto) 1.0 10^3/uL (0.8-4.8) 04/13/22 16:40 [place] # (Auto) 0.6 10^3/uL (0.2-0.9) 04/13/22 16:40 Eos # (Auto) 0.3 10^3/uL (0.0-0.8) 04/13/22 16:40 Baso # (Auto) 0.1 10^3/uL (0.0-0.1) 04/13/22 16:40 Nucleated RBC % (auto) 0 % 04/13/22 16:40 Nucleated RBCs # 0.0 /100WBC 04/13/22 16:40 PT 14.70 SECONDS (12.1-14.9) 04/13/22 17:25 INR 1.12 (0.8-1.2) 04/13/22 17:25 APTT 28.5 SECONDS (23.9-36.7) 04/13/22 17:25 Specimen Type Arterial 04/13/22 16:44 Sample Site Radial, left 04/13/22 16:44 ABG pH 7.41 (7.35-7.45) 04/13/22 16:44 ABG pCO2 40.4 mmHg (35-45) 04/13/22 16:44 ABG pO2 76.6 mmHg (80.0-100.0) L 04/13/22 16:44 ABG HCO3 25.5 mmol/L (22-26) 04/13/22 16:44 ABG O2 Saturation 97.2 04/13/22 16:44 ABG Base Excess 0.7 mmol/L (-2.0-2.0) 04/13/22 16:44 Hunter Test Pos 04/13/22 16:44 A-a O2 Gradient 3.1 mmHg (5-10) L 04/13/22 16:44 Hematocrit 28.9 % (42-52) L 04/13/22 16:44 Hgb O2 Saturation 95.5 % (95-100) 04/13/22 16:44 Carboxyhemoglobin 1.2 %THgb (0.4-20.1) 04/13/22 16:44 Methemoglobin 0.4 % (0.4-1.5) 04/13/22 16:44 Total Hemoglobin 9.4 g/dL (14-18) L 04/13/22 16:44 Sodium 136.0 mmol/L (131-143) 04/13/22 16:44 Potassium 3.9 mmol/L (3.5-5.0) 04/13/22 16:44 Glucose 117.0 mg/dL (70-115) H 04/13/22 16:44 Ionized Calcium 1.2 mmol/L (1.1-1.4) 04/13/22 16:44 O2 Delivery Device Room air 04/13/22 16:44 FiO2 21.0 % 04/13/22 16:44 Aircraft Body Repairer ID Cak 04/13/22 16:44 Sodium 137 mmol/L (136-145) 04/13/22 16:40 Potassium 3.9 mmol/L (3.5-5.1) 04/13/22 16:40 Chloride 100 mmol/L (98-107) 04/13/22 16:40 Carbon Dioxide 27 mmol/L (22-29) 04/13/22 16:40 Anion Gap 13.9 (5-19) 04/13/22 16:40 BUN 24 mg/dL (8-23) H 04/13/22 16:40 Creatinine 1.2 mg/dL (0.7-1.2) 04/13/22 16:40 GFR Calculation Not Reportable 04/13/22 16:40 Glucose 107 mg/dL (65-115) 04/13/22 16:40 Calculated Osmolality 289 mOsm/kg (285-295) 04/13/22 16:40 Lactic Acid 1.8 mmol/L (0.5-2.2) 04/13/22 16:40 Calcium 8.9 mg/dL (8.5-10.5) 04/13/22 16:40 Total Bilirubin 0.4 mg/dL (0.15-1.2) 04/13/22 16:40 AST 8 U/L (0-40) 04/13/22 16:40 ALT < 5 U/L (0-41) 04/13/22 16:40 Alkaline Phosphatase 213 U/L (40-130) H 04/13/22 16:40 Ammonia 20 umol/L (16-60) 04/13/22 17:10 Creatine Kinase 54 U/L (39-308) 04/13/22 16:40 Troponin T Baseline 82 ng/L (0-15) H 04/13/22 16:40 NT-Pro-B Natriuret Pep 05292 pg/mL (0-450) H 04/13/22 16:40 Total Protein 5.9 g/dL (6.6-8.7) L 04/13/22 16:40 Albumin 3.1 g/dL (3.5-5.2) L 04/13/22 16:40 Globulin 2.8 g/dL (1.3-4.6) 04/13/22 16:40 Fluid Color Yellow 04/13/22 10:15 Fluid Appearance Clear 04/13/22 10:15 Fluid Specific Grav 1.010 04/13/22 10:15 Fluid WBC 126 /uL 04/13/22 10:15 Fluid RBC 0 10^3/uL 04/13/22 10:15 Fld Polynuclear WBCs # 0.016 04/13/22 10:15 Fld Polynuclear WBCs % 12.700 % 04/13/22 10:15 Fl Mononucl WBCs #(Auto) 0.110 04/13/22 10:15 Fl Mononuclear % Auto 87.300 % 04/13/22 10:15 Fluid Albumin 1.9 g/dL 04/13/22 10:15 Discharge Plan Discharge Patient Disposition: Admitted As Inpatient Admit Provider: Brigido Low Clinical Impression: Idiopathic cirrhosis, Abdominal ascites, Dyspnea Condition: Stable Discharge Diet: Regular Coding Level of Care Code ED Production Machinist for Chg Fwd Exam Detailed
[2022-04-13 16:56] LABS: ABG PCO2 40.4 mmHg (35-45); ABG PH Result 7.41 (7.35-7.45); Alveolar-Arterial Oxygen Gradi 3.1 mmHg (5-10); Arterial Blood Gas Hematocrit 28.9 % (42-52); Base Excess ABG 0.7 mmol/L (-2.0-2.0); Blood Gas Allen Test Pos; Blood Gas Operator Identificat CAK; Blood Gas Sample Site Radial, left; Blood Gas Sample Type Arterial; Carboxyhemoglobin 1.2 %THgb (0.4-20.1); HCO3 ABG 25.5 mmol/L (22-26); HGB O2 Sat 95.5 % (95-100); Ionized Calcium Level - ABG 1.2 mmol/L (1.1-1.4); Methemoglobin 0.4 % (0.4-1.5); Oxygen Device ROOM AIR; Oxygen Saturation ABG 97.2; PO2 ABG 76.6 mmHg (80.0-100.0); Potassium Level - ABG 3.9 mmol/L (3.5-5.0); Total Hemoglobin 9.4 g/dL (14-18)
[2022-04-13 17:03] LABS: Basophils # 0.1 10^3/uL (0.0-0.1); Basophils % 0.6 %; Eosinophils # 0.3 10^3/uL (0.0-0.8); Eosinophils % 3.2 %; Hematocrit 29.8 % (42.0-52.0); Hemoglobin 9.4 g/dL (11.7-16.6); Lymphocytes % 12.7 %; Mean Corpuscular HGB Conc 31.5 g/dL (30.0-36.0); Mean Corpuscular Hemoglobin 31.3 pg (28.0-34.0); Mean Corpuscular Volume 99.3 fl (80-94); Mean Platelet Volume 10.2 fL (7.4-10.4); Monocytes # 0.6 10^3/uL (0.2-0.9); Monocytes % 7.6 %; Neutrophils # 5.98 10^3/uL (1.8-7.7); Neutrophils % 75.4 %; Nucleated Red Blood Cells % 0 %; Platelet Count 298 10^3/cmm (130-400); Red Cell Distribution Width 15.2 % (12.1-15.1); White Blood Count 7.9 10^3/uL (4.0-10.0)
[2022-04-13] MEDS: aspirin 81 mg Chew Tablet 324 MG PO (17:08)
[2022-04-13 17:11] LABS: Lactic Sepsis W/Reflex 1.8 mmol/L (0.5-2.2)
[2022-04-13 17:17] LABS: Troponin(5th) Baseline 82 ng/L (0-15)
[2022-04-13 17:25] LABS: Alanine Aminotransferase < 5 U/L (0-41); Albumin Level 3.1 g/dL (3.5-5.2); Alkaline Phosphatase 213 U/L (40-130); Anion Gap 13.9 (5-19); Aspartate Amino Transferase 8 U/L (0-40); Blood Urea Nitrogen 24 mg/dL (8-23); Calcium 8.9 mg/dL (8.5-10.5); Carbon Dioxide 27 mmol/L (22-29); Chloride 100 mmol/L (98-107); Creatine Phosphokinase 54 U/L (39-308); Globulin 2.8 g/dL (1.3-4.6); Glucose 107 mg/dL (65-115); NT Pro B Type Natriuretic Pept 14142 pg/mL (0-450); Osmolality Calculated 289 mOsm/kg (285-295); Potassium 3.9 mmol/L (3.5-5.1); Sodium 137 mmol/L (136-145); Total Bilirubin 0.4 mg/dL (0.15-1.2); Total Protein 5.9 g/dL (6.6-8.7)
[2022-04-13 17:50] LABS: INR 1.12 (0.8-1.2)
[2022-04-13 17:51] LABS: Partial Thromboplastin Time 28.5 SECONDS (23.9-36.7)
[2022-04-13 17:55] LABS: Ammonia 20 umol/L (16-60)
--- NOTE | 2022-04-13 18:17 | ECG_ITS ---
[facility] Test Date: 2022-04-13 Pat Name: Santiago Brumfield Department: Room: 256 Gender: Male Personal Service Workers: : 1940 Requested By: Martin Trevizo Order Number: [id number] Rosa MD: Mimi Hanna M.D. Measurements Intervals [place] Rate: 73 P: 0 ID: 0 QRS: -73 QRSD: 113 T: 83 QT: 411 QTc: 454 Interpretive Statements ATRIAL FIBRILLATION LOW QRS VOLTAGE [QRS DEFLECTION < 0.5/1.0 mV IN LIMB/CHEST LEADS] PATTERN CONSISTENT WITH PULMONARY DISEASE POSSIBLE RIGHT VENTRICULAR CONDUCTION DELAY [RSR (QR) IN V1/V2] MODERATE T-WAVE ABNORMALITY, CONSIDER ANTERIOR ISCHEMIA [-0.1+ mV T-WAVE IN V3/V4] Compared to ECG 04/13/2022 16:10:21 Low QRS voltage now present.T-wave abnormality now present Possible ischemia now present.Sinus rhythm no longer present Short ID interval no longer present.Incomplete right bundle-branch block no longer present. Myocardial infarct finding no longer present Electronically Signed On 04-14-2022 20:43:49 GOLD LEAF PRINTER by Mimi Hanna M.D. [id number]
--- NOTE | 2022-04-13 19:08 | PM.HP ---
Providers/Chief Complaint Admitting Physician: Brigido Low Primary Care Provider: Roma Martel APN Chief Complaint: SOB History of Present Illness Pleasant 82-year-old gentleman with history of idiopathic liver cirrhosis, not a liver transplant candidate, history of ascites, 2 prior paracentesis last February 23, denies prior history of SBP, recently has gained quite a bit of weight and has been quite dyspneic with exertion, orthopnea. Has had significant weight gain, this morning up to 194 pounds. Denies any chest pain or pressure. Denies any fevers or chills. Has had quite significant abdominal distention. Notes bilateral lower extremity edema as well. Has been taking his medications including Lasix. He states due to chronic kidney disease he has been trying to keep intake a certain number of cups of water per day, although he or his family are not sure how many. In ER he is noted to be with significant abdominal distention, observation is requested for him to be able to undergo paracentesis with IR in the morning. He is not on any anticoagulation, does take aspirin 325 mg. Review of Systems Const: Denies: fever(s), chills, body aches or malaise Eyes: Denies: change in vision, eye discomfort or eye redness ENMT: Denies: throat pain, oral sores or ear or mastoid pain Card: Reports: edema, swelling of feet/ankles, dyspnea on exertion and orthopnea; Denies: chest pain or pre-syncope Resp: Denies: productive cough, change in phlegm color or hemoptysis GI: Reports: diarrhea and other (Abdominal distention); Denies: abdominal pain, nausea, vomiting, constipation, hematochezia or melena : Denies: flank pain, difficulty urinating, urinary frequency or hematuria Musc: Denies: back pain, joint swelling or joint redness Skin/Breast: Denies: rash or new lesions Neuro: Denies: headache(s), numbness in extremities, weakness in extremities, dizziness, confusion or seizure-like activity Endo: Denies: polyuria or polydipsia Anjel/Lymph: Reports: easy bleeding; Denies: tender lymph nodes All/Imm: Denies: urticaria or tongue swelling Medications/Allergies Home Medications Medication Instructions Recorded Confirmed Last Taken Type acetaminophen 500 mg tablet 1,000 mg PO PRN PRN Pain 07/03/19 04/13/22 12/09/21 History (Tylenol Extra Strength) ascorbic acid (vitamin C) 1,000 mg 1 gm PO DAILY 07/03/19 04/13/22 04/13/22 History tablet cetirizine 10 mg tablet 10 mg PO DAILY PRN Allergy Symptoms 07/03/19 04/13/22 12/09/21 History ferrous gluconate 324 mg (37.5 mg 324 mg PO BID 07/03/19 04/13/22 04/13/22 History iron) tablet omega-3 fatty acids 1,000 mg 1,000 mg PO BID 07/03/19 04/13/22 04/13/22 History capsule fluticasone propionate 50 2 spray intranasal DAILY PRN 01/31/20 04/13/22 12/09/21 Rx mcg/actuation nasal allergy symptoms #9.9 mL spray,suspension lisinopril 10 mg tablet 10 mg PO DAILY #30 tabs 01/31/20 04/13/22 04/13/22 Rx metoprolol succinate 25 mg 12.5 mg PO DAILY #45 tabs 01/31/20 04/13/22 04/12/22 Rx tablet,extended release 24 hr furosemide 40 mg tablet 40 mg PO QAM 02/19/20 04/13/22 04/13/22 History aspirin 325 mg tablet 325 mg PO DAILY 12/09/21 04/13/22 04/13/22 History pantoprazole 40 mg tablet,delayed 40 mg PO DAILY 12/09/21 04/13/22 04/13/22 History release Lactobacillus acidophilus 100 mg 1,000 mmu cells PO BID 01/27/22 04/13/22 04/13/22 History (1 billion cell) capsule calcium carbonate 600 mg calcium 600 mg PO DAILY 01/27/22 04/13/22 04/13/22 History (1,500 mg) tablet (Calcium) cholecalciferol (vitamin D3) 250 250 mcg PO DAILY 01/27/22 04/13/22 04/13/22 History mcg (10,000 unit) capsule folic acid 400 mcg tablet 0.4 mg PO DAILY 01/27/22 04/13/22 04/12/22 History vitamin E (dl, acetate) 450 mg 450 mg PO DAILY 01/27/22 04/13/22 04/13/22 History (1,000 unit) capsule zinc acetate 50 mg (zinc) capsule 50 mg PO DAILY 01/27/22 04/13/22 04/13/22 History (Galzin) allopurinol 300 mg tablet 300 mg PO DAILY 02/20/22 04/13/22 04/13/22 History escitalopram oxalate 10 mg tablet 10 mg PO DAILY 02/20/22 04/13/22 04/13/22 History budesonide 0.5 mg/2 mL suspension 0.5 mg inhalation BID PRN 04/13/22 04/13/22 04/13/22 History for nebulization Shortness Of Breath Allergies Allergy/AdvReac Type Severity Reaction Status Date / Time Sulfa (Sulfonamide Allergy Unknown RASH Verified 04/13/22 16:06 Antibiotics) Anticoagulation AdvReac Severe Unknown Uncoded 04/13/22 19:12 PFSH Acute PFSH: Medical History Abdominal ascites Abdominal ascites Afib Anemia CHF (congestive heart failure) CKD (chronic kidney disease) Hypertension Idiopathic cirrhosis Liver cirrhosis RICA on CPAP Prostate CA Surgical History History of colonoscopy History of total right hip replacement Hx of abdominal prostatectomy Hx of knee surgery Family History Family/Other Cancer Heart disease Social History Smoking and tobacco status: never smoked Second hand smoke exposure: No Alcohol intake: never Household members: spouse Marital status: service: No Current occupational status: retired History of recent travel: No Current gender identity: Male Vitals/I&O/Wt Last Vital Signs Temp 96.9 F L 04/13/22 16:06 Pulse 73 04/13/22 18:30 Resp 22 H 04/13/22 18:30 BP 118/73 04/13/22 18:30 Pulse Ox 97 04/13/22 18:30 O2 Del Method 04/13/22 18:30 O2 Flow Rate 2 04/13/22 16:17 Weight last 48 hrs Weight 87.997 kg Physical Exam Narrative: Accompanied by family at bedside including his . Const: COMMON NORMALS: patient oriented x3 and alert GENERAL APPEARANCE: cooperative ORIENTATION/CONSCIOUSNESS: Yes awake HENMT: COMMON NORMALS: oropharynx normal Neck/C-Spine: COMMON NORMALS: no JVD Resp: COMMON NORMALS: normal respiratory effort and clear to auscultation bilaterally AUSCULTATION: clear to auscultation bilaterally Cardio: COMMON NORMALS: no JVD, regular rhythm, S1 normal heart sound present, S2 normal heart sound present and No murmurs present (Cardio) RHYTHM: regular rhythm HEART SOUNDS: S1 normal heart sound present and S2 normal heart sound present GI: COMMON NORMALS: Normal to inspection, nondistended, normoactive bowel sounds present, Soft to palpation and non-tender INSPECTION: Yes abdominal distension PALPATION: Yes Soft to palpation Extremity: COMMON NORMALS: no joint enlargement GENERAL: Yes edema (2+) Neuro: COMMON NORMALS: patient oriented x3 and moves all extremities SENSORIUM/ORIENTATION: Yes alert Skin: COMMON NORMALS: no rashes or lesions noted GENERAL SKIN EXAM: no rashes or lesions noted Data 04/13/22 16:40 04/13/22 16:40 A&P Assessment and plan (1) Abdominal ascites: Decompensated liver cirrhosis with abdominal ascites that have worsened, although he also states has been drinking an unclear number of cups of water per day to try to keep his kidneys hydrated with history of CKD. Has been taking Lasix however, with significant abdominal distention, edema, likely not absorbing dose currently. Discussed with him to avoid purposeful fluid intake other than if he is thirsty. May benefit from fluid restriction. We will transition Lasix to IV. Request paracentesis. NPO, sips and chips and meds. Family very concerned regarding bleeding, no anticoagulation even prophylactic dose. (2) Idiopathic cirrhosis: May benefit from follow-up with hepatology. (3) CHF (congestive heart failure): IV Lasix, monitor I&O, weights. Assess TTE. He is chest pain-free. Complete troponin EKG series. Initial troponin with moderate elevation but in the setting of acute CHF decompensation, decompensated cirrhosis, with CKD. Comparable to prior back in January 2020, appears to have chronic elevation. Qualifiers: Heart failure type: unspecified Heart failure chronicity: unspecified Qualified Code(s): I50.9 - Heart failure, unspecified Plan A. fib, on aspirin 325 mg, metoprolol, HTN: Hold lisinopril dose for now given anticipated paracentesis, CHF: Type unknown, currently appears in exacerbation, Lasix IV, monitor I&O, weights, additional paracentesis arrangements, assess TTE. RICA on CPAP Prostate cancer Attestations Medical Necessity Statement*: Place in observation for additional assessment of management of large volume ascites needing paracentesis, CHF decompensation in his room and of advanced age with underlying liver cirrhosis this, CKD and additional comorbid conditions as above. 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
[2022-04-13] MEDS: FUROsemide 10 mg/mL SDV 4mL 40 MG IVP (20:47)
[2022-04-13 21:38] LABS: Troponin 5 6HR 80.03 ng/L (0-15)
[2022-04-13 21:39] LABS: Troponin 5 6HR Delta -1.97 ng/L (0-12)
--- NOTE | 2022-04-13 22:17 | ECG_ITS ---
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 Measurements Intervals [place] Rate: 73 P: 56 ID: [id number] QRS: -83 QRSD: 122 T: 91 QT: 428 QTc: 472 Interpretive Statements Atrial fibrillation with a controlled ventricular response rate RIGHT BUNDLE BRANCH BLOCK [120+ ms QRS DURATION, UPRIGHT V1, 40+ ms S IN I/aVL/V4/V5/V6] INFERIOR MYOCARDIAL INFARCTION , OF INDETERMINATE AGE [40+ ms Q WAVE AND/OR ST/T ABNORMALITY IN II/aVF] Compared to ECG 04/13/2022 21:36:59 First degree AV block now present Right bundle-branch block now present Myocardial infarct finding now present T-wave abnormality no longer present Possible ischemia no longer present Electronically Signed On 04-14-2022 20:44:53 MEDICAL RECORDS FIELD TECHNICIAN by Mimi Hanna M.D. [id number]
[2022-04-14 04:00] VITALS: BP 121/76; PULSE 72; RESP 17; TEMP 36.5; O2SAT 95
[2022-04-14 05:29] LABS: Basophils # 0.1 10^3/uL (0.0-0.1); Basophils % 0.7 %; Eosinophils # 0.4 10^3/uL (0.0-0.8); Eosinophils % 4.5 %; Hematocrit 31.1 % (42.0-52.0); Hemoglobin 9.7 g/dL (11.7-16.6); Lymphocytes # 1.5 10^3/uL (0.8-4.8); Lymphocytes % 17.5 %; Mean Corpuscular HGB Conc 31.2 g/dL (30.0-36.0); Mean Corpuscular Hemoglobin 30.6 pg (28.0-34.0); Mean Corpuscular Volume 98.1 fl (80-94); Mean Platelet Volume 10.3 fL (7.4-10.4); Monocytes # 0.7 10^3/uL (0.2-0.9); Monocytes % 8.5 %; Neutrophils # 5.65 10^3/uL (1.8-7.7); Neutrophils % 68.3 %; Nucleated Red Blood Cells % 0 %; Platelet Count 292 10^3/cmm (130-400); Red Blood Count 3.17 10^6/uL (4.1-5.3); Red Cell Distribution Width 14.9 % (12.1-15.1); White Blood Count 8.3 10^3/uL (4.0-10.0)
[2022-04-14 05:59] LABS: Alanine Aminotransferase < 5 U/L (0-41); Albumin Level 3.1 g/dL (3.5-5.2); Alkaline Phosphatase 204 U/L (40-130); Anion Gap 14.2 (5-19); Aspartate Amino Transferase 10 U/L (0-40); Blood Urea Nitrogen 23 mg/dL (8-23); Calcium 9.2 mg/dL (8.5-10.5); Carbon Dioxide 26 mmol/L (22-29); Chloride 103 mmol/L (98-107); Globulin 2.7 g/dL (1.3-4.6); Glucose 91 mg/dL (65-115); Magnesium 1.4 mg/dL (1.7-2.3); Osmolality Calculated 291 mOsm/kg (285-295); Potassium 4.2 mmol/L (3.5-5.1); Sodium 139 mmol/L (136-145); Thyroid Stimulating Hormone 3.52 uIU/mL (0.27-4.20); Total Bilirubin 0.4 mg/dL (0.15-1.2); Total Protein 5.8 g/dL (6.6-8.7)
[2022-04-14 08:00] VITALS: BP 122/70; PULSE 73; RESP 16; TEMP 36.4; O2SAT 95
[2022-04-14] MEDS: metoprolol succinate ER (24 HR) 25 mg Tablet 12.5 MG PO (08:00)
[2022-04-14] MEDS: allopurinol 300 mg Tablet PO (08:00)
[2022-04-14] MEDS: escitalopram 10 mg Tablet PO (08:00)
[2022-04-14] MEDS: pantoprazole DR 40 mg Tablet PO (08:00)
[2022-04-14] MEDS: aspirin 325 mg Tablet PO (08:00)
[2022-04-14] MEDS: FUROsemide 10 mg/mL SDV 4mL 40 MG IVP (08:00)
[2022-04-14] MEDS: ferrous gluconate 324 mg Tablet PO (08:00)
[2022-04-14 09:28] VITALS: PULSE 72; RESP 16; O2SAT 95
--- NOTE | 2022-04-14 10:19 | USCV_ITS ---
Santiago Brumfield Age: 82 Gender: M : 1940 Exam Date: 04/14/2022 09:50 Ordering Phys: Brigido Low MD Technologist: Shree Amador [place] [facility] [place]: ef chf BP: 116 / 66 HR: Rhythm: Sinus Technical Quality: Adequate MEASUREMENTS (Male / Female) Normal Values 2D ECHO LV Diastolic Diameter PLAX 4.7 cm 4.2 - 5.9 / 3.9 - 5.3 cm LV Systolic Diameter PLAX 2.6 cm IVS Diastolic Thickness 0.9 cm 0.6 - 1.0 / 0.6 - 0.9 cm IVS Systolic Thickness 1.1 cm LVPW Diastolic Thickness 1.5 cm 0.6 - 1.0 / 0.6 - 0.9 cm LVPW Systolic Thickness 3.3 cm LVOT Diameter 2.0 cm LV Ejection Fraction 2D Teich 21.4 % LA Diameter 5.0 cm M-MODE Aortic Annulus Diameter 3.5 cm LA Ao Ratio MM 1.4 MV E Point Septal Separation 1.0 cm DOPPLER AV Peak Velocity 200.0 cm/s LVOT Peak Velocity 84.0 cm/s AV Area Cont Eq vti 1.5 cm squared AV Area Cont Eq pk 1.3 cm squared MV Area PHT 4.3 cm squared Mitral E to A Ratio 2.5 MV E' Velocity 61.5 cm/s Mitral E to MV E' Ratio 23.5 Mitral E to LV E' Lateral Ratio 23.1 Mitral E to LV E' Septal Ratio 24.5 TR Peak Velocity 304.7 cm/s TR Peak Gradient 37.1 mmHg Right Atrial Pressure 3.0 mmHg Pulmonary Artery Systolic Pressu 40.1 mmHg PV Peak Velocity 79.0 cm/s RV Acceleration Time 0.1 s FINDINGS Left Ventricle Left ventricle is normal in size. Pulm function is borderline normal with EF of 50-55%. Mild global hypokinesis is seen Right Ventricle Normal in size. Mildly hypokinetic Right Atrium Dilated Left Atrium Dilated Mitral Valve Structurally normal mitral valve. Moderate mitral regurgitation. Aortic Valve Aortic valve is thickened. Mild aortic stenosis with MARINA of 1.46cm2 and mean gradient across aortic valve of 8.2mmHg. Mild aortic regurgitation. Tricuspid Valve Mild tricuspid regurgitation. RVSP is 35-40mmHg. This is consistent with mild pulmonary hypertension. Pulmonic Valve Not well visualized Pericardium Normal Aorta Grossly normal IVC CONCLUSIONS LV systolic function is borderline normal with a EF of 50 to 55%. Mild global hypokinesis. Mildly hypokinetic RV Biatrial enlargement Moderate mitral regurgitation Mild aortic stenosis. Mild aortic regurgitation Mild tricuspid regurgitation. Mild pulmonary hypertension Compared to prior echocardiogram from 2013, patient's LV systolic function has slightly reduced Harry Alberts MD (Electronically Signed) Final Date: 15 April 2022 13:09 S
--- NOTE | 2022-04-14 11:31 | PC.CHAP ---
Pastoral Care Encounter/Spiritual Assessment Type of Contact [] Declined acquisition manager visit [] Patient/Family/Request visit [] Outpatient visit [] Follow-up visit [] Physician referral [] Code/Alert [x] Routine visit [] Staff referral [] Actively dying [] Patient sleeping [] Family support [] [] Out of room [] Palliative care [] [x] Receiving care in room [] Pre-surgical visit [] Trauma [] Long length of stay [] ICU visit [] Other: Relational/Emotional Strength [] Patient feels connected with others/family/visitors/staff [] Distress [] Loneliness/isolation [] Abandonment Spirituality of Patient [] Person of Veronica [] Attends Orthodoxy of their Veronica [] Believes in Prayer [] Reads Bible or Roman Catholic materials [] There are Spiritual issues to be addressed File System Installer Interventions [] Prayer [] Active listening [] Non-anxious presence [] Spiritual/emotional support [] Crisis/trauma care [] Spiritual counseling [] Bereavement support [] Provided bereavement packet [] Provided Bible/devotional materials [] Provided toy/stuffed animal, coloring book to patient or family member [] Provided Communion [] Anointing/[place] [] Salvation [] Completed spiritual assessment [] Other: Impact on Illness or Injury [] Angry [] Fearful [] Anxious [] Often cries [] Exhaustion [] Unable to work [] Unable to attend jain [] Unable to walk/stand [] Unable to read [] Unable to drive [] Unable to eat/drink [] Unable to sleep [] Unable to be with family [] Patient intubated [] Other: Summary Time spent with patient
[2022-04-14 11:44] LABS: Apprearance, Body Fluid CLEAR; Color, Body Fluid YELLOW; Cyto Order Verification Order Verified
[2022-04-14 11:55] LABS: Body Fluid Polynuclear #Cells 0.016; Body Fluid WBC 126 /uL; RBC, Body Fluid 0 10^3/uL
[2022-04-14 12:00] VITALS: BP 106/66; PULSE 74; RESP 16; TEMP 36.7; O2SAT 95
[2022-04-14 12:15] LABS: Albumin Body Fluid 1.9 g/dL
[2022-04-14 14:00] VITALS: PULSE 76
[2022-04-14] MEDS: magnesium sulfate premix 2 GM/50 ML PIGGYBACK IV (14:43)
[2022-04-14 16:27] VITALS: PULSE 76
--- NOTE | 2022-04-14 16:56 | PM.DCS ---
Discharge Providers Date of Admission: 04/13/22 17:56 Date of Discharge: April 14, 2022 Attending Provider at Admission: Brigido Low Attending Provider at Discharge: Brigido Low Primary Care Provider: Roma Martel APN Diagnoses at Discharge Discharge Diagnosis (1) Abdominal ascites: Status: Acute (2) Idiopathic cirrhosis: Status: Acute (3) CHF (congestive heart failure): Status: Acute Qualifiers: Heart failure type: unspecified Heart failure chronicity: unspecified Qualified Code(s): I50.9 - Heart failure, unspecified Reason for Visit Reason for Visit: SOB Hospital Course Hospital Course Pleasant 82-year-old gentleman with reported history of a hepatic liver cirrhosis, now 3 liver transplant candidate, history of ascites with 2X prior paracentesis, last February 23 with removal of 13 L, without prior history of SBP, recently with significant fluid overload, abdominal distention, with some edema, dyspnea exertion and orthopnea quite bit of weight gain, up to 195 pounds, normally weighing around 175. Was placed in observation as paracentesis could not be obtained last night, arranged for this morning, also with initiation of diuresis with IV Lasix last night. In negative balance 3.1 L with diuresis, lisinopril was held and he tolerated paracentesis well with removal of 12 L of fluid. Given 15 g albumin infusion. She and his family requested to go home. After hospitalization TTE was obtained as well, although results currently are pending interpretation. He does have history of CHF, although did feel much better after paracentesis. His Lasix dose is increased to 60 mg daily, spironolactone 25 mg daily was added as well. He also was drinking an unspecified amount of water thinking that that is why he was supposed to be to help keep his kidneys hydrated . Discussed with him to drink only if he is thirsty, not to try to drink on purpose. He is also asked to maintain sodium restriction to below 5.2 g/day. In case ascites returning, consider further escalation of diuretic therapy to help avoid need for additional paracentesis. Ascitic fluid requested to be sent for culture as well as cytology. Please follow-up final results. Gram stain was negative. 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 If there is no new lead manufacturing engineering tech taking over care consider referral. Please follow-up regarding liver cirrhosis. Refer for upper endoscopy has never had one continue. Follow-up for cirrhosis including liver function, renal function, follow-up every 6 months ultrasound and arrange other recommended follow-up including hepatology for further assessment and follow-up of cirrhosis of unknown etiology. Follow-up regarding CHF and TTE. Follow volume status, again adjust diuresis further depending on volume status and symptoms. Consider further risk stratification with stress testing. Physical Exam Narrative: Accompanied by family at bedside including his . Const: COMMON NORMALS: patient oriented x3 and alert GENERAL APPEARANCE: cooperative ORIENTATION/CONSCIOUSNESS: Yes awake HENMT: COMMON NORMALS: oropharynx normal Neck/C-Spine: COMMON NORMALS: no JVD Resp: COMMON NORMALS: normal respiratory effort and clear to auscultation bilaterally AUSCULTATION: clear to auscultation bilaterally Cardio: COMMON NORMALS: no JVD, regular rhythm, S1 normal heart sound present, S2 normal heart sound present and No murmurs present (Cardio) RHYTHM: regular rhythm HEART SOUNDS: S1 normal heart sound present and S2 normal heart sound present GI: COMMON NORMALS: Normal to inspection, nondistended, normoactive bowel sounds present, Soft to palpation and non-tender INSPECTION: Yes abdominal distension PALPATION: Yes Soft to palpation Extremity: COMMON NORMALS: no joint enlargement GENERAL: Yes edema (2+) Neuro: COMMON NORMALS: patient oriented x3 and moves all extremities SENSORIUM/ORIENTATION: Yes alert Skin: COMMON NORMALS: no rashes or lesions noted GENERAL SKIN EXAM: no rashes or lesions noted Discharge Data Studies Completed and Pending Completed Studies During Hospitalization Category Date Time Status XR chest 1V portable [id number] Stat Exams 04/13/22 16:17 Completed US abdomen lmt fluid [id number] Stat Ultrasound 04/13/22 16:45 [place]d w [id number] Routine Ultrasound 04/14/22 19:53 Completed Pending at discharge Category Date Time Status Anaerobic Culture Routine Lab 04/13/22 10:15 Results Body Fluid Culture & GS Routine Lab 04/13/22 10:15 Results CV. echo complete* [id number] Routine Ultrasound 04/14/22 10:19 Taken Radiology Impressions Chest X-Ray 04/13/22 16:17 IMPRESSION: Mild cardiomegaly and bilateral small volume pleural effusions. Abdomen Ultrasound 04/13/22 16:45 IMPRESSION: Large amount of peritoneal ascites. Paracentesis Ultrasound 04/14/22 19:53 IMPRESSION: Uncomplicated ultrasound[place] [address] cc Laboratory Results WBC 8.3 10^3/uL (4.0-10.0) 04/14/22 04:47 RBC 3.17 10^6/uL (4.1-5.3) L 04/14/22 04:47 Hgb 9.7 g/dL (11.7-16.6) L 04/14/22 04:47 Hct 31.1 % (42.0-52.0) L 04/14/22 04:47 MCV 98.1 fl (80-94) H 04/14/22 04:47 MCH 30.6 pg (28.0-34.0) 04/14/22 04:47 MCHC 31.2 g/dL (30.0-36.0) 04/14/22 04:47 RDW 14.9 % (12.1-15.1) 04/14/22 04:47 Plt Count 292 10^3/cmm (130-400) 04/14/22 04:47 MPV 10.3 fL (7.4-10.4) 04/14/22 04:47 Neut % (Auto) 68.3 % 04/14/22 04:47 Lymph % (Auto) 17.5 % 04/14/22 04:47 [place] % (Auto) 8.5 % 04/14/22 04:47 Eos % (Auto) 4.5 % 04/14/22 04:47 Baso % (Auto) 0.7 % 04/14/22 04:47 Neut # (Auto) 5.65 10^3/uL (1.8-7.7) 04/14/22 04:47 Lymph # (Auto) 1.5 10^3/uL (0.8-4.8) 04/14/22 04:47 [place] # (Auto) 0.7 10^3/uL (0.2-0.9) 04/14/22 04:47 Eos # (Auto) 0.4 10^3/uL (0.0-0.8) 04/14/22 04:47 Baso # (Auto) 0.1 10^3/uL (0.0-0.1) 04/14/22 04:47 Nucleated RBC % (auto) 0 % 04/14/22 04:47 Nucleated RBCs # 0.0 /100WBC 04/14/22 04:47 PT 14.70 SECONDS (12.1-14.9) 04/13/22 17:25 INR 1.12 (0.8-1.2) 04/13/22 17:25 APTT 28.5 SECONDS (23.9-36.7) 04/13/22 17:25 Specimen Type Arterial 04/13/22 16:44 Sample Site Radial, left 04/13/22 16:44 ABG pH 7.41 (7.35-7.45) 04/13/22 16:44 ABG pCO2 40.4 mmHg (35-45) 04/13/22 16:44 ABG pO2 76.6 mmHg (80.0-100.0) L 04/13/22 16:44 ABG HCO3 25.5 mmol/L (22-26) 04/13/22 16:44 ABG O2 Saturation 97.2 04/13/22 16:44 ABG Base Excess 0.7 mmol/L (-2.0-2.0) 04/13/22 16:44 Hunter Test Pos 04/13/22 16:44 A-a O2 Gradient 3.1 mmHg (5-10) L 04/13/22 16:44 Hematocrit 28.9 % (42-52) L 04/13/22 16:44 Hgb O2 Saturation 95.5 % (95-100) 04/13/22 16:44 Carboxyhemoglobin 1.2 %THgb (0.4-20.1) 04/13/22 16:44 Methemoglobin 0.4 % (0.4-1.5) 04/13/22 16:44 Total Hemoglobin 9.4 g/dL (14-18) L 04/13/22 16:44 Sodium 136.0 mmol/L (131-143) 04/13/22 16:44 Potassium 3.9 mmol/L (3.5-5.0) 04/13/22 16:44 Glucose 117.0 mg/dL (70-115) H 04/13/22 16:44 Ionized Calcium 1.2 mmol/L (1.1-1.4) 04/13/22 16:44 O2 Delivery Device Room air 04/13/22 16:44 FiO2 21.0 % 04/13/22 16:44 Wafer Substrate Tester ID Cak 04/13/22 16:44 Sodium 139 mmol/L (136-145) 04/14/22 04:47 Potassium 4.2 mmol/L (3.5-5.1) 04/14/22 04:47 Chloride 103 mmol/L (98-107) 04/14/22 04:47 Carbon Dioxide 26 mmol/L (22-29) 04/14/22 04:47 Anion Gap 14.2 (5-19) 04/14/22 04:47 BUN 23 mg/dL (8-23) 04/14/22 04:47 Creatinine 1.4 mg/dL (0.7-1.2) H 04/14/22 04:47 GFR Calculation Not Reportable 04/14/22 04:47 Glucose 91 mg/dL (65-115) 04/14/22 04:47 Calculated Osmolality 291 mOsm/kg (285-295) 04/14/22 04:47 Lactic Acid 1.8 mmol/L (0.5-2.2) 04/13/22 16:40 Calcium 9.2 mg/dL (8.5-10.5) 04/14/22 04:47 Magnesium 1.4 mg/dL (1.7-2.3) L 04/14/22 04:47 Total Bilirubin 0.4 mg/dL (0.15-1.2) 04/14/22 04:47 AST 10 U/L (0-40) 04/14/22 04:47 ALT < 5 U/L (0-41) 04/14/22 04:47 Alkaline Phosphatase 204 U/L (40-130) H 04/14/22 04:47 Ammonia 20 umol/L (16-60) 04/13/22 17:10 Creatine Kinase 54 U/L (39-308) 04/13/22 16:40 Troponin T Baseline 82 ng/L (0-15) H 04/13/22 16:40 Troponin T Hi Sens 6Hr 80.03 ng/L (0-15) H 04/13/22 21:00 Troponin T Hi Sens 6Hr Delta -1.97 ng/L (0-12) L 04/13/22 21:00 NT-Pro-B Natriuret Pep 38326 pg/mL (0-450) H 04/13/22 16:40 Total Protein 5.8 g/dL (6.6-8.7) L 04/14/22 04:47 Albumin 3.1 g/dL (3.5-5.2) L 04/14/22 04:47 Globulin 2.7 g/dL (1.3-4.6) 04/14/22 04:47 TSH 3.52 uIU/mL (0.27-4.20) 04/14/22 04:47 Fluid Color Yellow 04/13/22 10:15 Fluid Appearance Clear 04/13/22 10:15 Fluid Specific Grav 1.010 04/13/22 10:15 Fluid WBC 126 /uL 04/13/22 10:15 Fluid RBC 0 10^3/uL 04/13/22 10:15 Fld Polynuclear WBCs # 0.016 04/13/22 10:15 Fld Polynuclear WBCs % 12.700 % 04/13/22 10:15 Fl Mononucl WBCs #(Auto) 0.110 04/13/22 10:15 Fl Mononuclear % Auto 87.300 % 04/13/22 10:15 Fluid Albumin 1.9 g/dL 04/13/22 10:15 Vitals Last Vital Signs Temp 98.0 F 04/14/22 12:00 Pulse 76 04/14/22 16:27 Resp 16 04/14/22 12:00 BP 106/66 04/14/22 12:00 Pulse Ox 95 04/14/22 12:00 O2 Del Method 04/14/22 12:00 O2 Flow Rate 2 04/13/22 16:17 Discharge Plan Discharge Patient Disposition: Home Health Service Condition: Stable Prescriptions: New spironolactone 25 mg tablet 25 mg PO DAILY Qty: 90 0RF Continued ferrous gluconate 324 mg (37.5 mg iron) tablet 324 mg PO BID acetaminophen [Tylenol Extra Strength] 500 mg tablet 1,000 mg PO PRN PRN (Reason: Pain) cetirizine 10 mg tablet 10 mg PO DAILY PRN (Reason: Allergy Symptoms) omega-3 fatty acids 1,000 mg capsule 1,000 mg PO BID ascorbic acid (vitamin C) 1,000 mg tablet 1 gm PO DAILY lisinopril 10 mg tablet 10 mg PO DAILY Qty: 30 5RF fluticasone propionate 50 mcg/actuation spray,suspension 2 spray INTRANASAL DAILY PRN (Reason: allergy symptoms) Qty: 9.9 5RF metoprolol succinate 25 mg tablet extended release 24 hr 12.5 mg PO DAILY Qty: 45 1RF Galzin 50 mg (zinc) capsule 50 mg PO DAILY folic acid 400 mcg tablet 0.4 mg PO DAILY calcium carbonate [Calcium 600] 600 mg calcium (1,500 mg) tablet 600 mg PO DAILY cholecalciferol (vitamin D3) 250 mcg (10,000 unit) capsule 250 mcg PO DAILY vitamin E (dl, acetate) 450 mg (1,000 unit) capsule 450 mg PO DAILY Lactobacillus acidophilus 100 mg (1 billion cell) capsule 1,000 mmu cells PO BID allopurinol 300 mg tablet 300 mg PO DAILY escitalopram oxalate 10 mg tablet 10 mg PO DAILY budesonide 0.5 mg/2 mL suspension for nebulization 0.5 mg inhalation BID PRN (Reason: Shortness Of Breath) pantoprazole 40 mg tablet,delayed release (DR/EC) 40 mg PO DAILY aspirin 325 mg Tablet 325 mg PO DAILY Changed furosemide 40 mg tablet 60 mg PO QAM Qty: 90 0RF Discharge Orders: Discharge Order (Routine); Ordered 04/14/22 Ordered By: Brigido Low Referrals: [facility] [Outside] Roma Martel APN [Primary Care Provider] - 04/21/22 9:00 am Discharge Diet: Regular Patient Instructions: Spironolactone (By mouth), Cirrhosis of the Liver (GEN), Chronic Kidney Disease (GEN), Ascites (GEN), Opioid Safety Activity Restrictions/Additional Instructions: Please follow-up with your primary doctor for reassessment and continued follow-up on liver cirrhosis, reassessment of ascites, in case of recurrence and patient appropriate for paracentesis with radiology. Please discuss with your primary doctor referral to hepatology to further assess cirrhosis and for needed follow-up. Continue other regular follow-up for liver cirrhosis including with ultrasound screening every 6 months to exclude hepatocellular carcinoma. Upper endoscopy if you have never had one. Continued follow-up of liver and renal function. Please have your primary doctor follow-up on final results of cytology as well as cultures from the fluid obtained. Avoid drinking water on purpose, drink if you are thirsty. Limit sodium intake to less than 5.2 g of salt per day. Your Lasix dose is increased to 60 mg daily, we also started on spironolactone 25 mg daily. Please have your primary doctor reassess your electrolytes including potassium, renal function as well as reassess response of ascites to diuretic. Diuretic therapy may need to be increased further. Avoid any NSAIDs. Please have your primary doctor reassess your magnesium level was potassium level here was on hospital, replaced by IV. Hold today's lisinopril dose monitor blood pressure twice daily, hold lisinopril in case blood pressures lower than 110 systolic (top number) or 60 diastolic (bottom number). Continue to management of cardiovascular risk factors with your primary doctor. Consider additional risk stratification with stress testing. Discharge Attestations Time Spent in Discharge Care*: greater than 30 min Quality Metrics Clinical Quality Measures [ No reported AMI, CVA or VTE this stay] Coding Level of Care Code Acute Chg FW DC note Diagnoses Abdominal ascites R18.8 Idiopathic cirrhosis K74.60 CHF (congestive heart failure) I50.9 Heart failure type: unspecified Heart failure chronicity: unspecified
--- NOTE | 2022-04-14 19:53 | US_ITS ---
WS: [id number] ULTRASOUND-GUIDED PARACENTESIS CLINICAL INFORMATION: therapeutic paracentesis COMPARISON: None. Procedure Informed consent: The risks, benefits, and alternatives of the procedure were discussed with the bk ent. Verbal and written consent was obtained. Timeout: A timeout was performed to confirm the correct patient, procedure, and site. Preparation: A suitable skin site was identified. The patient was prepped and draped in usual sterile fashion. Lidocaine 1% was used for local anesthesia. Catheter: 4 [place] One-step shopandsaveeh catheter. Side: RIGHT Lower quadrant. Fluid Volume: 91980 ml Color: Clear yellow DISPOSITION: Discarded safely. Complications: None. US/US paracentesis abd w [id number] IMPRESSION: Uncomplicated ultrasound[place] [address] cc
== END 2022-04-14 16:19 | disposition home health service (06) ==
LOC: ER 18:19 → MEDSURG 18:42
PROVIDERS: Family Medicine; Admitting Provider Internal Medicine; Emergency Provider Emergency Medicine; PCP Nurse Practitioner Family; Visit Provider Internal Medicine
DX: R18.8 Other ascites (principal); K74.60 Unspecified cirrhosis of liver; I13.0 Hypertensive heart and chronic kidney disease with heart failure and stage 1 through stage 4 chronic kidney disease, or unspecified chronic kidney disease; N18.9 Chronic kidney disease, unspecified; I50.9 Heart failure, unspecified; I48.91 Unspecified atrial fibrillation; G47.33 Obstructive sleep apnea (adult) (pediatric); Z85.46 Personal history of malignant neoplasm of prostate
CPT/HCPCS: 36415; 36600; 49083; 51702; 71045; 76705; 80051; 80053; 80503; 82042; 82140; 82330; 82550; 82805; 83605; 83735; 83880; 84315; 84443; 84484; 85025; 85610; 85730; 87070; 87075; 87205; 89050; 93005; 93306; 94660; 96365; 96375; 99285; G0378; J1940; J3475; P9046

== ENCOUNTER 2022-05-20 13:57 | Inpatient (IN) | payer OTHER, SELFPAY ==
[2022-05-20] VITALS (7 sets, daily range): BP systolic 117–124; BP diastolic 72–86; PULSE 76–99; RESP 16–22; TEMP 36.7–36.8; O2SAT 94–99; BMI 27.3
--- NOTE | 2022-05-20 14:16 | XR_ITS ---
WS: [id number] Portable AP upright chest, 05/20/2022 Clinical Data: shortness of breath Comparison: Portable chest, 04/13/2022 Findings: The heart remains enlarged. There are moderate bilateral pleural effusions. The pulmonary v ascularity is not increased. The aortic arch shows tortuosity. No pneumothorax or pneumonia is seen. There are no nodules or masses. Monitor leads are on the chest wall. XR/XR chest 1V portable [id number] Impression: Cardiomegaly and moderate bilateral pleural effusions unchanged.
[2022-05-20 14:27] LABS: Basophils # 0.1 10^3/uL (0.0-0.1); Basophils % 0.7 %; Eosinophils # 0.5 10^3/uL (0.0-0.8); Eosinophils % 4.9 %; Hemoglobin 10.4 g/dL (11.7-16.6); Lymphocytes # 1.3 10^3/uL (0.8-4.8); Lymphocytes % 13.6 %; Mean Corpuscular HGB Conc 31.5 g/dL (30.0-36.0); Mean Corpuscular Hemoglobin 30.3 pg (28.0-34.0); Mean Corpuscular Volume 96.2 fl (80-94); Mean Platelet Volume 10.2 fL (7.4-10.4); Monocytes # 0.5 10^3/uL (0.2-0.9); Neutrophils # 7.13 10^3/uL (1.8-7.7); Neutrophils % 75.6 %; Nucleated Red Blood Cells % 0 %; Platelet Count 269 10^3/cmm (130-400); Red Blood Count 3.43 10^6/uL (4.1-5.3); Red Cell Distribution Width 15.1 % (12.1-15.1); White Blood Count 9.4 10^3/uL (4.0-10.0)
--- NOTE | 2022-05-20 14:33 | PC.NURSE ---
PT PLACED ON CONTINUOUS NIBP, SPO2, AND CM
--- NOTE | 2022-05-20 14:34 | W.ED.SOB ---
HPI - SOB/Dyspnea General: Chief Complaint: Shortness of Breath/Dyspnea Stated Complaint: SOB/ WT GAIN/ AFIB Time Seen by Provider: 05/20/22 14:07 History of Present Illness: HPI Narrative: 82-year-old male with a history of idiopathic cirrhosis, congestive heart failure, atrial fibrillation, chronic ascites who presents today with increased fatigue and weakness. Patient has had gradually worsening shortness of breath and abdominal distention over the past 3 days. Yesterday he had several episodes of vomiting large amounts of bright red blood. Today he was too weak to get out of bed and his states he was sleepy and she could not get him awake this morning. Patient does complain of his abdomen feeling very distended but denies abdominal pain. He has not had any further vomiting since yesterday. He denies fever but has had chills and sweats he denies chest pain. Associated symptoms: Reports nausea, orthopnea and vomiting; Deny chest pain, fever(s) or hemoptysis Review of Systems General: Reports: 10 or more systems reviewed and unremarkable except in HPI and below Const: Reports: malaise and daytime sleepiness; Denies: fever(s) Eyes: Denies: yellow eyes ENMT: Reports: throat pain and bleeding gums Card: Reports: dyspnea on exertion and orthopnea; Denies: chest pain Resp: Reports: dyspnea; Denies: non-productive cough or hemoptysis GI: Reports: nausea, vomiting, hematemesis and other (Large amounts of bright red blood) Musc: Reports: extremity swelling PFSH ED PFSH: Medical History Abdominal ascites Abdominal ascites Afib Anemia CHF (congestive heart failure) CKD (chronic kidney disease) Hypertension Idiopathic cirrhosis Liver cirrhosis RICA on CPAP Prostate CA Surgical History History of colonoscopy History of total right hip replacement Hx of abdominal prostatectomy Hx of knee surgery Family History Family/Other Cancer Heart disease Social History Smoking and tobacco status: never smoked Second hand smoke exposure: No Alcohol intake: never Household members: spouse Marital status: service: No Current occupational status: retired History of recent travel: No Current gender identity: Male Physical Exam Const: GENERAL APPEARANCE: cooperative and comfortable ORIENTATION/CONSCIOUSNESS: Yes awake, Yes oriented to person, Yes oriented to place and Yes oriented to time HENMT: COMMON NORMALS: normocephalic, atraumatic and hearing grossly normal bilaterally HEAD & SCALP: normocephalic and atraumatic Resp: COMMON NORMALS: normal respiratory effort, No retractions, No use of accessory muscles and clear to auscultation bilaterally AUSCULTATION: clear to auscultation bilaterally Cardio: COMMON NORMALS: regular rate, regular rhythm and No murmurs present (Cardio) RATE: regular rate RHYTHM: regular rhythm GI: INSPECTION: Yes abdominal distension and Yes Fluid wave present PERCUSSION: dullness to percussion and Fluid wave present RECTAL EXAM: Yes normal sphincter tone, No heme negative stool and Yes other (Soft brown stool, Hemoccult positive) Extremity: COMMON NORMALS: normal to inspection, capillary refill normal, no clubbing, cyanosis or edema, no calf tenderness and no pedal edema Neuro: SENSORIUM/ORIENTATION: Yes oriented to person, Yes oriented to place and Yes oriented to time Skin: COMMON NORMALS: no rashes or lesions noted GENERAL SKIN EXAM: no rashes or lesions noted Course ED course: See medical decision making. Patient will be admitted to the hospitalist. Had a long discussion with the patient and his . They want the patient to be a full code. They are declining endoscopy for evaluation of his GI bleeding. They understand that in the event he has recurrent GI bleeding from above that the surgeons here are unable to scope as far as evaluation and treatment of esophageal varices. Patient will be admitted to the hospitalist for observation. Consultations: Consultation #1: Dr. Chi to admit the patient Time: 16:33 Vital Signs: Vital signs: Vital Signs Temperature 98.3 F 05/20/22 14:04 Pulse Rate 99 05/20/22 14:04 Respiratory Rate 16 05/20/22 14:04 Blood Pressure 121/80 05/20/22 14:04 Pulse Oximetry 99 05/20/22 14:04 Oxygen Delivery Me thod 05/20/22 14:04 Oxygen Flow Rate 2 05/20/22 14:04 MDM - SOB/Dyspnea Medical Decision Making 82-year-old male with a history of chronic liver failure, cirrhosis, ascites, congestive heart failure who presents today with generalized weakness. Per history, the patient had possible variceal bleeding yesterday by their description, he had at least 2 episodes of large-volume bright red blood emesis. On rectal exam today, he does not have melanotic stools but it is Hemoccult positive. He has a large amount of ascites on examination. His abdomen is soft, nontender. Chest x-ray he has bilateral pleural effusions which are unchanged from prior. He is hemodynamically stable. Hemoglobin is stable at 10.4, hematocrit is 33.0. Platelet count is normal at 269. Coags are stable with the PT of 14.6, INR 1.1. BUN is 22, creatinine is 1.3. Electrolytes are normal. [place] [address]. Patient's troponin is 80. EKG shows no acute ischemic changes and is unchanged from previous. We will give the patient 325 mg of aspirin. We will hold off on anticoagulation as of the history of bleeding. The patient does have tight ascites and will probably benefit from paracentesis but do not feel it is emergent today. Will discuss with the hospitalist for admission.. Lab Data 05/20/22 14:08 05/20/22 14:08 Labs/Radiology: Radiology Impressions Chest X-Ray 05/20/22 14:16 Impression: Cardiomegaly and moderate bilateral pleural effusions unchanged. Laboratory Results WBC 9.4 10^3/uL (4.0-10.0) 05/20/22 14:08 RBC 3.43 10^6/uL (4.1-5.3) L 05/20/22 14:08 Hgb 10.4 g/dL (11.7-16.6) L 05/20/22 14:08 Hct 33.0 % (42.0-52.0) L 05/20/22 14:08 MCV 96.2 fl (80-94) H 05/20/22 14:08 MCH 30.3 pg (28.0-34.0) 05/20/22 14:08 MCHC 31.5 g/dL (30.0-36.0) 05/20/22 14:08 RDW 15.1 % (12.1-15.1) 05/20/22 14:08 Plt Count 269 10^3/cmm (130-400) 05/20/22 14:08 MPV 10.2 fL (7.4-10.4) 05/20/22 14:08 Neut % (Auto) 75.6 % 05/20/22 14:08 Lymph % (Auto) 13.6 % 05/20/22 14:08 [place] % (Auto) 5.0 % 05/20/22 14:08 Eos % (Auto) 4.9 % 05/20/22 14:08 Baso % (Auto) 0.7 % 05/20/22 14:08 Neut # (Auto) 7.13 10^3/uL (1.8-7.7) 05/20/22 14:08 Lymph # (Auto) 1.3 10^3/uL (0.8-4.8) 05/20/22 14:08 [place] # (Auto) 0.5 10^3/uL (0.2-0.9) 05/20/22 14:08 Eos # (Auto) 0.5 10^3/uL (0.0-0.8) 05/20/22 14:08 Baso # (Auto) 0.1 10^3/uL (0.0-0.1) 05/20/22 14:08 Nucleated RBC % (auto) 0 % 05/20/22 14:08 Nucleated RBCs # 0.0 /100WBC 05/20/22 14:08 PT 14.60 SECONDS (12.1-14.9) 05/20/22 14:08 INR 1.11 (0.8-1.2) 05/20/22 14:08 APTT 26.4 SECONDS (23.9-36.7) 05/20/22 14:08 Sodium 140 mmol/L (136-145) 05/20/22 14:08 Potassium 4.3 mmol/L (3.5-5.1) 05/20/22 14:08 Chloride 106 mmol/L (98-107) 05/20/22 14:08 Carbon Dioxide 24 mmol/L (22-29) 05/20/22 14:08 Anion Gap 14.3 (5-19) 05/20/22 14:08 BUN 22 mg/dL (8-23) 05/20/22 14:08 Creatinine 1.3 mg/dL (0.7-1.2) H 05/20/22 14:08 GFR Calculation Not Reportable 05/20/22 14:08 Glucose 88 mg/dL (65-115) 05/20/22 14:08 Calculated Osmolality 293 mOsm/kg (285-295) 05/20/22 14:08 Calcium 8.5 mg/dL (8.5-10.5) 05/20/22 14:08 Total Bilirubin 0.4 mg/dL (0.15-1.2) 05/20/22 14:08 AST 19 U/L (0-40) 05/20/22 14:08 ALT < 5 U/L (0-41) 05/20/22 14:08 Alkaline Phosphatase 214 U/L (40-130) H 05/20/22 14:08 Ammonia 24 umol/L (16-60) 05/20/22 16:05 Troponin T Baseline 80 ng/L (0-15) H 05/20/22 14:08 NT-Pro-B Natriuret Pep 71598 pg/mL (0-450) H 05/20/22 14:08 Total Protein 5.9 g/dL (6.6-8.7) L 05/20/22 14:08 Albumin 3.3 g/dL (3.5-5.2) L 05/20/22 14:08 Globulin 2.6 g/dL (1.3-4.6) 05/20/22 14:08 EKG Data EKG 1: I personally reviewed and interpreted this EKG as follows: EKG Interpretation Date: 05/20/22 EKG interpretation time: 14:41 Interpretation: Atrial fibrillation, right bundle branch block, no acute ST segment elevation or depression, T wave inversion in the anteroseptal leads, unchanged from prior EKG Discharge Plan Discharge Patient Disposition: Admitted As Inpatient Clinical Impression: Non-ST elevated myocardial infarction (non-STEMI), Hematemesis, Ascites, Cirrhosis, Generalized weakness, Increasing shortness of breath Condition: Fair Coding Level of Care Code ED Autism Motor Specialist for Chg Fwd Exam Detailed Medical Decision Making High Complexity
--- NOTE | 2022-05-20 14:37 | ECG_ITS ---
[facility] Test Date: 2022-05-20 Pat Name: Santiago Brumfield Department: Room: Gender: Male Child Care Coordinator: : 1940 Requested By: Twila Marks Order Number: [id number] Rosa MD: Soledad Kearney M.D. Measurements Intervals [place] Rate: 75 P: 0 GA: 0 QRS: -56 QRSD: 133 T: 119 QT: 410 QTc: 458 Interpretive Statements ATRIAL FIBRILLATION RIGHT BUNDLE BRANCH BLOCK [120+ ms QRS DURATION, UPRIGHT V1, 40+ ms S IN I/aVL/V4/V5/V6] INFERIOR MYOCARDIAL INFARCTION , PROBABLY OLD [40+ ms Q WAVE AND/OR ST/T ABNORMALITY IN II/aVF] Compared to ECG 04/13/2022 23:36:39 No significant changes Electronically Signed On 05-20-2022 16:50:12 [employer] SUPERVISOR by Soledad Kearney M.D. [id number]
[2022-05-20 14:49] LABS: Troponin(5th) Baseline 80 ng/L (0-15)
[2022-05-20 14:56] LABS: Alanine Aminotransferase < 5 U/L (0-41); Albumin Level 3.3 g/dL (3.5-5.2); Alkaline Phosphatase 214 U/L (40-130); Aspartate Amino Transferase 19 U/L (0-40); Blood Urea Nitrogen 22 mg/dL (8-23); Calcium 8.5 mg/dL (8.5-10.5); Carbon Dioxide 24 mmol/L (22-29); Chloride 106 mmol/L (98-107); Globulin 2.6 g/dL (1.3-4.6); Glucose 88 mg/dL (65-115); NT Pro B Type Natriuretic Pept 15018 pg/mL (0-450); Osmolality Calculated 293 mOsm/kg (285-295); Sodium 140 mmol/L (136-145); Total Bilirubin 0.4 mg/dL (0.15-1.2); Total Protein 5.9 g/dL (6.6-8.7)
[2022-05-20 15:01] LABS: Anion Gap 14.3 (5-19); Potassium 4.3 mmol/L (3.5-5.1)
[2022-05-20 15:03] LABS: INR 1.11 (0.8-1.2); Partial Thromboplastin Time 26.4 SECONDS (23.9-36.7)
--- NOTE | 2022-05-20 15:52 | PC.PHAR ---
PT AND HIS ST PTS DOCTOR HAS TAKEN PT OFF FUROSIMIDE 60 MG DAILY AND REPLACED WITH SPIRONOLACTONE 100 MG DAILY- ALSO PTS DR ADVISED PT TO STOP ASPIRIN AND FISH OIL
--- NOTE | 2022-05-20 16:16 | ECG_ITS ---
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 Measurements Intervals [place] Rate: 78 P: 0 WI: 0 QRS: -58 QRSD: 135 T: 81 QT: 413 QTc: 472 Interpretive Statements ATRIAL FIBRILLATION RIGHT BUNDLE BRANCH BLOCK [120+ ms QRS DURATION, UPRIGHT V1, 40+ ms S IN I/aVL/V4/V5/V6] INFERIOR MYOCARDIAL INFARCTION , PROBABLY OLD [40+ ms Q WAVE AND/OR ST/T ABNORMALITY IN II/aVF] Compared to ECG 05/20/2022 14:37:09 No significant changes Electronically Signed On 05-20-2022 16:51:45 AUDIO ENGINEER by Soledad Kearney M.D. [id number]
[2022-05-20 16:37] LABS: Ammonia 24 umol/L (16-60)
[2022-05-20 16:43] LABS: Troponin 5 2HR 78.28 ng/L (0-15)
[2022-05-20 16:45] LABS: Troponin 5 2HR Delta -1.72 ABS# (0-10)
[2022-05-20] MEDS: aspirin 81 mg Chew Tablet 324 MG PO (17:06)
--- NOTE | 2022-05-20 18:30 | PM.HP ---
Providers/Chief Complaint Admitting Physician: Lisa Chi MD Primary Care Provider: Roma Martel APN Chief Complaint: SOB/ WT GAIN/ AFIB History of Present Illness Santiago Brumfield is a 82 year old male 82-year-old gentleman with history of idiopathic liver cirrhosis, not a liver transplant candidate, history of ascites,?per currently on hospice who presents today with increased fatigue and weakness.? Patient has had gradually worsening shortness of breath and abdominal distention over the past 3 days.? Yesterday he had 2 episodes of hemetemesis which resolved. ? Today he felt too weak to get out of bed and appeared to be more somnolent as well. He has not had EGDD in the past. Hb today is stable at 10.4, similar to his previous baseline. He has been afebrile. Review of Systems General: Reports: 10 or more systems reviewed and unremarkable except in HPI and below Const: Denies: fever(s), chills or body aches Eyes: Denies: change in vision, blurry vision or photophobia ENMT: Reports: hoarseness; Denies: throat pain, enlarged tonsils, odynophagia or nasal congestion Card: Denies: chest pain, palpitations, irregular heart rhythm, edema, swelling of feet/ankles, lightheadedness, pre-syncope, dyspnea on exertion or orthopnea Resp: Denies: dyspnea, productive cough, non-productive cough, wheezing, stridor, pain on inspiration, change in phlegm color, hemoptysis or chest congestion GI: Denies: abdominal pain, nausea, vomiting, hematemesis, coffee ground emesis, dysphagia, heartburn, diarrhea, constipation, GI cramping, change in stool character, hematochezia or melena : Denies: flank pain, dysuria, urinary frequency, urinary urgency, urinary hesitancy or hematuria Musc: Denies: neck pain, back pain, extremity pain, joint swelling, joint warmth or deformity Neuro: Denies: headache(s), numbness in extremities, weakness in extremities, sensory changes, difficulty walking, frequent falls, dizziness, vertigo, behavioral changes, Slurred speech present or seizure-like activity Psych: Denies: anxiety, depression, suicidal ideation or homicidal ideation Endo: Denies: polyuria, polydipsia, tired all the time, cold intolerance or hot flashes Anjel/Lymph: Denies: easy bruising or easy bleeding Medications/Allergies Home Medications Medication Instructions Recorded Confirmed Last Taken Type acetaminophen 500 mg tablet 1,000 mg PO PRN PRN Pain 07/03/19 05/20/22 05/19/22 History (Tylenol Extra Strength) ascorbic acid (vitamin C) 1,000 mg 1 gm PO DAILY 07/03/19 05/20/22 05/19/22 History tablet cetirizine 10 mg tablet 10 mg PO DAILY PRN Allergy Symptoms 07/03/19 05/20/22 05/19/22 History ferrous gluconate 324 mg (37.5 mg 324 mg PO BID 07/03/19 05/20/22 05/19/22 History iron) tablet fluticasone propionate 50 2 spray intranasal DAILY PRN 01/31/20 05/20/22 12/09/21 Rx mcg/actuation nasal allergy symptoms #9.9 mL spray,suspension lisinopril 10 mg tablet 10 mg PO DAILY #30 tabs 01/31/20 05/20/22 05/19/22 Rx metoprolol succinate 25 mg 12.5 mg PO DAILY #45 tabs 01/31/20 05/20/22 05/19/22 Rx tablet,extended release 24 hr pantoprazole 40 mg tablet,delayed 40 mg PO DAILY 12/09/21 05/20/22 05/19/22 History release Lactobacillus acidophilus 100 mg 1,000 mmu cells PO BID 01/27/22 05/20/22 05/19/22 History (1 billion cell) capsule calcium carbonate 600 mg calcium 600 mg PO DAILY 01/27/22 05/20/22 05/19/22 History (1,500 mg) tablet (Calcium) cholecalciferol (vitamin D3) 250 250 mcg PO DAILY 01/27/22 05/20/22 05/19/22 History mcg (10,000 unit) capsule folic acid 400 mcg tablet 0.4 mg PO DAILY 01/27/22 05/20/22 05/19/22 History vitamin E (dl, acetate) 450 mg 450 mg PO DAILY 01/27/22 05/20/22 05/19/22 History (1,000 unit) capsule zinc acetate 50 mg (zinc) capsule 50 mg PO DAILY 01/27/22 05/20/22 05/19/22 History (Galzin) allopurinol 300 mg tablet 300 mg PO DAILY 02/20/22 05/20/22 05/19/22 History escitalopram oxalate 10 mg tablet 10 mg PO DAILY 02/20/22 05/20/22 05/19/22 History budesonide 0.5 mg/2 mL suspension 0.5 mg inhalation BID PRN 04/13/22 05/20/22 04/13/22 History for nebulization Shortness Of Breath ondansetron 4 mg disintegrating 4 - 8 mg PO Q4H PRN Nausea And 05/20/22 05/20/22 Unknown History tablet Vomiting spironolactone 100 mg tablet 100 mg PO QAM 05/20/22 05/20/22 05/20/22 History Allergies Allergy/AdvReac Type Severity Reaction Status Date / Time Sulfa (Sulfonamide Allergy Unknown RASH Verified 05/20/22 15:49 Antibiotics) Anticoagulation AdvReac Severe Unknown Uncoded 04/13/22 19:12 PFSH Acute PFSH: Medical History Abdominal ascites Abdominal ascites Afib Anemia CHF (congestive heart failure) CKD (chronic kidney disease) Hypertension Idiopathic cirrhosis Liver cirrhosis RICA on CPAP Prostate CA Surgical History History of colonoscopy History of total right hip replacement Hx of abdominal prostatectomy Hx of knee surgery Family History Family/Other Cancer Heart disease Social History Smoking and tobacco status: never smoked Second hand smoke exposure: No Alcohol intake: never Household members: spouse Marital status: service: No Current occupational status: retired History of recent travel: No Current gender identity: Male Vitals/I&O/Wt Last Vital Signs Temp 98.3 F 05/20/22 14:04 Pulse 79 05/20/22 17:00 Resp 21 H 05/20/22 17:00 BP 118/77 05/20/22 17:00 Pulse Ox 96 05/20/22 17:00 O2 Del Method 05/20/22 14:04 O2 Flow Rate 2 05/20/22 14:04 Weight last 48 hrs Weight 88.904 kg Physical Exam Narrative: General: No acute distress, AO x2-3 HEENT: PERRLA, pupils bilaterally equal and reactive, pallors not present Chest: Normal vesicular breath sounds, no added sounds, equal good air entry bilaterally CVS: S1-S2 regular, no murmurs, no tachycardia, no gallops, no rubs Abdomen: Soft, nontender, no organomegaly, bowel sounds present Neuro: No focal deficits, no facial deformity, AO x3, power 5/5 in all limbs Data 05/20/22 14:08 05/20/22 14:08 A&P Assessment and plan (1) Hematemesis: (2) Ascites: (3) Cirrhosis: (4) Generalized weakness: Plan Patient presenting with complaints as described above. He has a history of liver cirrhosis of unclear etiology, likely also with portal hypertension. Currently hemoglobin is stable, he has not had any recurrence of bleeding after yesterday. Protonix 40 mg IV every 12 hours Check INR Lasix 40 mg IV daily starting now for increased abdominal distention Request for ultrasound-guided paracentesis in the morning. Continue spironolactone Denies any chest pain. Patient did have troponins checked in the emergency room. No acute ST-T wave changes on EKG baseline elevated in the 80s range, however delta is negative at 2 and 6-hour. Suspect that this is related to type II NV from demand supply mismatch. Aspirin and anticoagulation is currently contraindicated in view of recent GI bleeding, will closely monitor patient for interim develop of any chest pain or any EKG changes. reports that patient is on hospice however states that this is not end-of-life hospice. We will attempt to clarify goals of care further during the course of this admission. 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
[2022-05-20] MEDS: FUROsemide 10 mg/mL SDV 4mL 40 MG IVP (18:49)
[2022-05-20] MEDS: pantoprazole 40 mg SDV IVP (18:49)
[2022-05-20 19:40] LABS: INR 1.13 (0.8-1.2)
[2022-05-20 19:48] LABS: Ammonia 23 umol/L (16-60)
--- NOTE | 2022-05-20 20:16 | ECG_ITS ---
[facility] Test Date: 2022-05-20 Pat Name: Santiago Brumfield Department: Room: 258 Gender: Male Presentation Designer: : 1940 Requested By: Twila Marks Order Number: [id number] Rosa MD: Mimi Hanna M.D. Measurements Intervals [place] Rate: 77 P: 0 PA: 0 QRS: -65 QRSD: 133 T: 76 QT: 414 QTc: 469 Interpretive Statements Atrial fibrillation RIGHT BUNDLE BRANCH BLOCK [120+ ms QRS DURATION, UPRIGHT V1, 40+ ms S IN I/aVL/V4/V5/V6] INFERIOR MYOCARDIAL INFARCTION , PROBABLY OLD [40+ ms Q WAVE AND/OR ST/T ABNORMALITY IN II/aVF] Compared to ECG 05/20/2022 16:20:51 Atrial fibrillation no longer present Myocardial infarct finding still present Electronically Signed On 05-21-2022 21:23:58 HEALTH PHYSICIST by Mimi Hanna M.D. [id number]
[2022-05-20 20:46] LABS: Add Urine Culture? No; Add Urine Microscopic? YES; Amorphous Sediment Urine 1+ /hpf; Bacteria Urine TRACE /hpf; Bilirubin Urine Neg (Negative); Blood Urine Neg (Negative); Glucose Urine UA Norm (Normal); Ketones Urine Negative (Negative); Leukocyte Esterase Urine 1+ (Negative); Nitrate Urine Negative (Negative); Protein Urine Neg (Negative); Specific Gravity, Urine 1.015 (1.005-1.030); Squamous Epithelial Cell Urine 0-4 /hpf (0-5); Urine Appearance Clear (CLEAR); Urine Color Yellow (Yellow); Urobilinogen Urine Norm (Negative); WBC Urine 0-4 /hpf (0-5); pH Urine 5 (5-7)
[2022-05-21] VITALS: BP 130/77; PULSE 92; RESP 22; TEMP 36.9; O2SAT 94
[2022-05-21 04:00] VITALS: BP 114/67; PULSE 82; RESP 19; TEMP 36.9; O2SAT 93
[2022-05-21 04:41] LABS: Basophils # 0.1 10^3/uL (0.0-0.1); Basophils % 0.7 %; Eosinophils # 0.4 10^3/uL (0.0-0.8); Eosinophils % 4.7 %; Hematocrit 29.6 % (42.0-52.0); Hemoglobin 9.3 g/dL (11.7-16.6); Lymphocytes # 1.2 10^3/uL (0.8-4.8); Lymphocytes % 15.6 %; Mean Corpuscular HGB Conc 31.4 g/dL (30.0-36.0); Mean Corpuscular Hemoglobin 29.8 pg (28.0-34.0); Mean Corpuscular Volume 94.9 fl (80-94); Mean Platelet Volume 9.9 fL (7.4-10.4); Monocytes # 0.6 10^3/uL (0.2-0.9); Monocytes % 7.8 %; Neutrophils # 5.46 10^3/uL (1.8-7.7); Neutrophils % 70.9 %; Nucleated Red Blood Cells % 0 %; Platelet Count 252 10^3/cmm (130-400); Red Blood Count 3.12 10^6/uL (4.1-5.3); Red Cell Distribution Width 14.9 % (12.1-15.1); White Blood Count 7.7 10^3/uL (4.0-10.0)
[2022-05-21 04:58] LABS: Alanine Aminotransferase < 5 U/L (0-41); Alkaline Phosphatase 179 U/L (40-130); Anion Gap 13.9 (5-19); Aspartate Amino Transferase 12 U/L (0-40); Blood Urea Nitrogen 21 mg/dL (8-23); Calcium 8.3 mg/dL (8.5-10.5); Carbon Dioxide 25 mmol/L (22-29); Chloride 105 mmol/L (98-107); Globulin 2.3 g/dL (1.3-4.6); Glucose 75 mg/dL (65-115); Magnesium 1.3 mg/dL (1.7-2.3); Osmolality Calculated 292 mOsm/kg (285-295); Potassium 3.9 mmol/L (3.5-5.1); Sodium 140 mmol/L (136-145); Total Bilirubin 0.5 mg/dL (0.15-1.2); Total Protein 5.3 g/dL (6.6-8.7)
[2022-05-21] MEDS: spironolactone 25 mg Tablet 100 MG PO (05:23)
[2022-05-21] MEDS: pantoprazole 40 mg SDV IVP (06:26)
[2022-05-21 07:32] VITALS: BP 115/65; PULSE 84; RESP 15; TEMP 36.7; O2SAT 91
[2022-05-21 07:59] VITALS: PULSE 86; RESP 16; O2SAT 93
[2022-05-21] MEDS: escitalopram 10 mg Tablet PO (08:34)
[2022-05-21] MEDS: allopurinol 300 mg Tablet PO (08:34)
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
--- NOTE | 2022-05-21 12:00 | US_ITS ---
WS: [id number] ULTRASOUND-GUIDED THERAPEUTIC PARACENTESIS Procedure, risks, and complications have been explained to the patient. Consent is obtained. Utilizing aseptic technique and 1% buffered lidocaine, a small dermatome was made through which a 5 F rench Yueh catheter was inserted. Approximately 8000 ml of clear peritoneal fluid was obtained witho ut difficulty. No complications encountered. US/US paracentesis abd w [id number] IMPRESSION: Uncomplicated paracentesis yielding 8000 ml of peritoneal fluid.
[2022-05-21 15:22] VITALS: BP 116/70; PULSE 114; RESP 16; TEMP 36.8; O2SAT 91
--- NOTE | 2022-05-21 15:31 | P.DS_ITS ---
Discharge Providers Date of Admission: 05/20/22 16:35 Date of Discharge: May 21, 2022 Attending Provider at Admission: Lisa Chi MD Attending Provider at Discharge: Lisa Chi MD Primary Care Provider: Roma Martel APN Diagnoses at Discharge Discharge Diagnosis (1) Hematemesis: Status: Acute (2) Ascites: Status: Acute (3) Cirrhosis: Status: Acute (4) Generalized weakness: Status: Acute Reason for Visit Reason for Visit: SOB/ WT GAIN/ AFIB Hospital Course Hospital Course Santiago Brumfield is a 82 year old male 82-year-old gentleman with history of idiopathic liver cirrhosis, not a liver transplant candidate, history of recurrent ascites, currently on hospice who presents today with increased fatigue and weakness.? Patient has had gradually worsening shortness of breath and abdominal distention over the past 3 days.? Yesterday he had 2 episodes of hemetemesis which resolved. ? Today he felt? too weak to get out of bed and appeared to be more somnolent as well. He was noted to have gross abdominal distention. Was alert awake upon exam. He underwent paracentesis with removal of 8 L fluid earlier this morning and tolerated this procedure well. Regarding the hematemesis, patient had no repeat episodes while in house. Hemoglobin remained stable at recent baseline of 9.3-10. Patient said he would like to avoid endoscopic procedures as much as possible. Since there was no evidence of active ongoing bleeding, it was decided not to proceed with further endoscopic evaluation. Patient will continue to be on Protonix twice daily and sucralfate at discharge. For his recurrent ascites, he is currently scheduled for paracentesis on May 29, 2022. Given his goals of care of hospice and to maximize comfort at home, he is likely to benefit from placement of a peritoneal drain so that he has the capability of draining his massive ascites at home before it gets to the point of causing him distress by way of abdominal distention pain and difficulty breathing. He has home hospice services who can additionally assist in this regard. He has been referred to see general surgery Dr. Blount on May 29, 2022 for placement of a peritoneal drain. Incidentally noted elevated troponins in the 80s range, likely secondary to type II HI from stress from gross abdominal distention. Patient is not a candidate for aspirin or anticoagulation given end-stage liver disease and recent Physical Exam Narrative: General: No acute distress, AO x3 HEENT: PERRLA, pupils bilaterally equal and reactive, pallors not present Chest: Normal vesicular breath sounds, no added sounds, equal good air entry bilaterally CVS: S1-S2 regular, no murmurs, no tachycardia, no gallops, no rubs Abdomen: distension much improved after drainage of ascitic fluid. Neuro: No focal deficits, no facial deformity, AO x3, power 5/5 in all limbs Urinary Catheter Management: Noriega Latex: Cath Placed During This Visit: yes Reason for Continuing Indwelling Catheter: Accurate Measurement of Urinary Output in Critically Ill Patients Urinary Catheter Date of Insertion: 05/21/22 Urinary Catheter Time of Insertion: 00:55 Discharge Data Studies Completed and Pending Completed Studies During Hospitalization Category Date Time Status XR chest 1V portable [id number] Stat Exams 05/20/22 14:16 [place] w [id number] Routine Ultrasound 05/21/22 12:00 Completed Pending at discharge Category Date Time Status Troponin(5th) 6 hour. Timed Lab 05/20/22 20:08 Ordered Radiology Impressions Chest X-Ray 05/20/22 14:16 Impression: Cardiomegaly and moderate bilateral pleural effusions unchanged. Paracentesis Ultrasound 05/21/22 12:00 IMPRESSION: Uncomplicated paracentesis yielding 8000 ml of peritoneal fluid. Laboratory Results WBC 7.7 10^3/uL (4.0-10.0) 05/21/22 04:10 RBC 3.12 10^6/uL (4.1-5.3) L 05/21/22 04:10 Hgb 9.3 g/dL (11.7-16.6) L 05/21/22 04:10 Hct 29.6 % (42.0-52.0) L 05/21/22 04:10 MCV 94.9 fl (80-94) H 05/21/22 04:10 MCH 29.8 pg (28.0-34.0) 05/21/22 04:10 MCHC 31.4 g/dL (30.0-36.0) 05/21/22 04:10 RDW 14.9 % (12.1-15.1) 05/21/22 04:10 Plt Count 252 10^3/cmm (130-400) 05/21/22 04:10 MPV 9.9 fL (7.4-10.4) 05/21/22 04:10 Neut % (Auto) 70.9 % 05/21/22 04:10 Lymph % (Auto) 15.6 % 05/21/22 04:10 [place] % (Auto) 7.8 % 05/21/22 04:10 Eos % (Auto) 4.7 % 05/21/22 04:10 Baso % (Auto) 0.7 % 05/21/22 04:10 Neut # (Auto) 5.46 10^3/uL (1.8-7.7) 05/21/22 04:10 Lymph # (Auto) 1.2 10^3/uL (0.8-4.8) 05/21/22 04:10 [place] # (Auto) 0.6 10^3/uL (0.2-0.9) 05/21/22 04:10 Eos # (Auto) 0.4 10^3/uL (0.0-0.8) 05/21/22 04:10 Baso # (Auto) 0.1 10^3/uL (0.0-0.1) 05/21/22 04:10 Nucleated RBC % (auto) 0 % 05/21/22 04:10 Nucleated RBCs # 0.0 /100WBC 05/21/22 04:10 PT 14.90 SECONDS (12.1-14.9) 05/20/22 19:15 INR 1.13 (0.8-1.2) 05/20/22 19:15 APTT 26.4 SECONDS (23.9-36.7) 05/20/22 14:08 Sodium 140 mmol/L (136-145) 05/21/22 04:10 Potassium 3.9 mmol/L (3.5-5.1) 05/21/22 04:10 Chloride 105 mmol/L (98-107) 05/21/22 04:10 Carbon Dioxide 25 mmol/L (22-29) 05/21/22 04:10 Anion Gap 13.9 (5-19) 05/21/22 04:10 BUN 21 mg/dL (8-23) 05/21/22 04:10 Creatinine 1.3 mg/dL (0.7-1.2) H 05/21/22 04:10 GFR Calculation Not Reportable 05/21/22 04:10 Glucose 75 mg/dL (65-115) 05/21/22 04:10 Calculated Osmolality 292 mOsm/kg (285-295) 05/21/22 04:10 Calcium 8.3 mg/dL (8.5-10.5) L 05/21/22 04:10 Magnesium 1.3 mg/dL (1.7-2.3) L 05/21/22 04:10 Total Bilirubin 0.5 mg/dL (0.15-1.2) 05/21/22 04:10 AST 12 U/L (0-40) 05/21/22 04:10 ALT < 5 U/L (0-41) 05/21/22 04:10 Alkaline Phosphatase 179 U/L (40-130) H 05/21/22 04:10 Ammonia 23 umol/L (16-60) 05/20/22 19:15 Troponin T Baseline 80 ng/L (0-15) H 05/20/22 14:08 Troponin T 120 Minute 78.28 ng/L (0-15) H 05/20/22 16:05 Delta Troponin T -1.72 ABS# (0-10) L 05/20/22 16:05 NT-Pro-B Natriuret Pep 84500 pg/mL (0-450) H 05/20/22 14:08 Total Protein 5.3 g/dL (6.6-8.7) L 05/21/22 04:10 Albumin 3.0 g/dL (3.5-5.2) L 05/21/22 04:10 Globulin 2.3 g/dL (1.3-4.6) 05/21/22 04:10 Urine Color Yellow (Yellow) 05/20/22 20:00 Urine Appearance Clear (CLEAR) 05/20/22 20:00 Urine pH 5 (5-7) 05/20/22 20:00 Ur Specific [place] 1.015 (1.005-1.030) 05/20/22 20:00 Urine Protein Neg (Negative) 05/20/22 20:00 Urine Glucose (UA) Norm (Normal) 05/20/22 20:00 Urine Ketones Negative (Negative) 05/20/22 20:00 Urine Blood Neg (Negative) 05/20/22 20:00 Urine Nitrate Negative (Negative) 05/20/22 20:00 Urine Bilirubin Neg (Negative) 05/20/22 20:00 Urine Urobilinogen Norm mg/dL (Negative) 05/20/22 20:00 Ur Leukocyte Esterase 1+ (Negative) H 05/20/22 20:00 Urine RBC None /hpf (0-2) 05/20/22 20:00 Urine WBC 0-4 /hpf (0-5) H 05/20/22 20:00 Ur Squamous Epith Cells 0-4 /hpf (0-5) H 05/20/22 20:00 Amorphous Sediment 1+ /hpf 05/20/22 20:00 Urine Bacteria Trace /hpf (NONE) 05/20/22 20:00 Blood Type O Positive 05/20/22 14:49 Rho(D) Type Positive 05/20/22 14:49 Antibody Screen Negative 05/20/22 14:49 Vitals Last Vital Signs Temp 98.3 F 05/21/22 15:22 Pulse 114 H 05/21/22 15:22 Resp 16 05/21/22 15:22 BP 116/70 05/21/22 15:22 Pulse Ox 91 05/21/22 15:22 O2 Del Method 05/21/22 15:22 O2 Flow Rate 2 05/20/22 14:04 Discharge Plan Discharge Patient Disposition: Hospice - Home Condition: Stable Prescriptions: New furosemide [Lasix] 40 mg tablet 40 mg PO DAILY PRN (Reason: edema) Qty: 30 0RF sucralfate 1 gram tablet 1 g PO BID 28 Days Qty: 56 0RF Continued ferrous gluconate 324 mg (37.5 mg iron) tablet 324 mg PO BID acetaminophen [Tylenol Extra Strength] 500 mg tablet 1,000 mg PO PRN PRN (Reason: Pain) cetirizine 10 mg tablet 10 mg PO DAILY PRN (Reason: Allergy Symptoms) ascorbic acid (vitamin C) 1,000 mg tablet 1 gm PO DAILY lisinopril 10 mg tablet 10 mg PO DAILY Qty: 30 5RF fluticasone propionate 50 mcg/actuation spray,suspension 2 spray INTRANASAL DAILY PRN (Reason: allergy symptoms) Qty: 9.9 5RF metoprolol succinate 25 mg tablet extended release 24 hr 12.5 mg PO DAILY Qty: 45 1RF Galzin 50 mg (zinc) capsule 50 mg PO DAILY folic acid 400 mcg tablet 0.4 mg PO DAILY calcium carbonate [Calcium 600] 600 mg calcium (1,500 mg) tablet 600 mg PO DAILY cholecalciferol (vitamin D3) 250 mcg (10,000 unit) capsule 250 mcg PO DAILY vitamin E (dl, acetate) 450 mg (1,000 unit) capsule 450 mg PO DAILY Lactobacillus acidophilus 100 mg (1 billion cell) capsule 1,000 mmu cells PO BID allopurinol 300 mg tablet 300 mg PO DAILY escitalopram oxalate 10 mg tablet 10 mg PO DAILY budesonide 0.5 mg/2 mL suspension for nebulization 0.5 mg inhalation BID PRN (Reason: Shortness Of Breath) spironolactone 100 mg tablet 100 mg PO QAM ondansetron 4 mg tablet,disintegrating 4 - 8 mg PO Q4H PRN (Reason: Nausea And Vomiting) Changed pantoprazole 40 mg tablet,delayed release (DR/EC) 40 mg PO BID 30 Days Qty: 60 1RF Discharge Orders: Discharge Order (Routine); Ordered 05/21/22 Ordered By: Lisa Chi Referrals: Gi lab, paracentesis [Other] - 05/29/22 1:00 pm [facility] [Outside] Roma Martel APN [Primary Care Provider] - 05/26/22 2:20 pm Stevie Blount DO [Physician] - 05/29/22 12:00 pm () Discharge Diet: Usual diet Discharge Activity: Resume usual activity Patient Instructions: Furosemide (By mouth), Ascites (GEN) Discharge Attestations Time Spent in Discharge Care*: greater than 30 min Quality Metrics Clinical Quality Measures [ No reported AMI, CVA or VTE this stay] Coding Level of Care Code Acute Chg FW DC note Diagnoses Hematemesis K92.0 Ascites R18.8 Cirrhosis K74.60 Generalized weakness R53.1
--- NOTE | 2022-05-21 17:28 | PC.NURSE ---
patient and family verbalized understanding of discharge instructions, home medications, and follow up appointments.
[2022-05-21 17:31] VITALS: BP 116/70; PULSE 114; RESP 16; TEMP 36.8; O2SAT 91
== END 2022-05-21 16:50 | disposition hospice, home (50) | DRG 432 ==
LOC: ER 16:35 → MEDSURG 16:52
PROVIDERS: Radiology Diagnostic Radiology; Admitting Provider Student in an Organized Health Care Education/Training Program; Emergency Provider Emergency Medicine; PCP Nurse Practitioner Family; Visit Provider Student in an Organized Health Care Education/Training Program
PROC: 0W9G3ZZ Drainage of Peritoneal Cavity, Percutaneous Approach (ICD-10-PCS; CPT 49082; principal; 2022-05-21 12:30)
DX: K74.60 Unspecified cirrhosis of liver (principal); I21.A1 Myocardial infarction type 2; R18.8 Other ascites; I13.0 Hypertensive heart and chronic kidney disease with heart failure and stage 1 through stage 4 chronic kidney disease, or unspecified chronic kidney disease; K92.0 Hematemesis; Z79.51 Long term (current) use of inhaled steroids; I48.91 Unspecified atrial fibrillation; D63.1 Anemia in chronic kidney disease; N18.9 Chronic kidney disease, unspecified; I50.9 Heart failure, unspecified; G47.33 Obstructive sleep apnea (adult) (pediatric); Z99.89 Dependence on other enabling machines and devices; Z85.46 Personal history of malignant neoplasm of prostate; Z96.641 Presence of right artificial hip joint; Z90.79 Acquired absence of other genital organ(s)
CPT/HCPCS: 36415; 49083; 51702; 71045; 80053; 81001; 82140; 83735; 83880; 84484; 85025; 85610; 85730; 86850; 86900; 93005; 99285; C9113; J1940

== ENCOUNTER 2022-05-29 11:33 | Day surgery (SDC) | payer MEDICARE, OTHER, SELFPAY ==
[2022-05-27 12:08] VITALS: BMI 25.2
--- NOTE | 2022-05-29 | US_ITS ---
WS: [email or web address] ABDOMINAL ULTRASOUND LIMITED CLINICAL INFORMATION: cirrhosis of the liver COMPARISON: None. FINDINGS: Abdominal ultrasound for paracentesis. Mild abdominal ascites. Insufficient fluid for parac entesis. US/US abdomen limited [id number] IMPRESSION:Insufficient fluid for paracentesis.
--- NOTE | 2022-05-29 11:52 | US_ITS ---
WS: [email or web address] ABDOMINAL ULTRASOUND LIMITED CLINICAL INFORMATION: cirrhosis of the liver COMPARISON: None. FINDINGS: Abdominal ultrasound for paracentesis. Mild abdominal ascites. Insufficient fluid for parac entesis.
[2022-05-29 11:59] VITALS: BP 99/65; PULSE 71; RESP 16; TEMP 36.6; O2SAT 96
== END 2022-05-29 12:52 | disposition home or self-care (01) ==
PROVIDERS: Radiology Neuroradiology; PCP Nurse Practitioner Family; Visit Provider Family Medicine
DX: K74.60 Unspecified cirrhosis of liver (principal)
CPT/HCPCS: 49083; 76705

== ENCOUNTER 2022-06-01 12:35 | Day surgery (SDC) | payer OTHER, MEDICARE, SELFPAY ==
[2022-06-01] VITALS (10 sets, daily range): BP systolic 91–107; BP diastolic 56–71; PULSE 63–73; RESP 10–19; TEMP 36.6–37; O2SAT 93–100
[2022-06-01] MEDS: sodium chloride 0.9% 1,000 ML 30 ML IV (13:32)
--- NOTE | 2022-06-01 13:38 | ANES.PREANE2 ---
Pre-Anesthetic Assessment Height/Weight: Height 1.8 m Weight 82.1 kg Temp Pulse Resp BP Pulse Ox O2 Del Method 98.6 F 72 18 106/63 93 06/01/22 13:18 06/01/22 13:18 06/01/22 13:18 06/01/22 13:18 06/01/22 13:18 06/01/22 13:18 Operation Date: 06/01/22 14:35 Proposed Procedures p lap peritoneal drain placement 13459, R18.8(Not Applicable) - Stevie Blount DO Familial anesthetic complications: None Was Beta Justin taken within 24 hours: Yes Was Clonidine taken within 24 hours: N/A Last intake: Intake Last Liquid Date 05/31/22 Last Liquid Time 18:00 Last Solid Date 05/31/22 Last Solid Time 18:00 Social No alcohol and No tobacco Exam alert, oriented x 3, clear to auscultation bilaterally and regular rate & rhythm Airway Mallampati: Class III Pulmonary Sleep Apnea CV/HEM Atrial Fibrillation, Coronary Artery Disease, Congestive Heart Failure, Hypertension and Myocardial Infarction (NSTEMI) EF 50% Mild /AR Mild pulm HTN, mild Hypokinesis Chronic Renal Insufficiency Hepatic idiopathic cirrhosis w/ Ascites GI Gastroesophageal Reflux Disease Anesthetic Plan ASA status: 4 Anesthesia: General Risk of > 500 ml blood loss (7ml/kg in children): No Medications/Allergies Home Medications Medication Instructions Recorded Confirmed Last Taken Type acetaminophen 500 mg tablet 1,000 mg PO PRN PRN Pain 07/03/19 05/29/22 05/29/22 History (Tylenol Extra Strength) ascorbic acid (vitamin C) 1,000 mg 1 gm PO DAILY 07/03/19 05/29/22 05/29/22 History tablet cetirizine 10 mg tablet 10 mg PO DAILY PRN Allergy Symptoms 07/03/19 05/29/22 05/29/22 History ferrous gluconate 324 mg (37.5 mg 324 mg PO BID 07/03/19 05/29/22 05/31/22 History iron) tablet fluticasone propionate 50 2 spray intranasal DAILY PRN 01/31/20 05/29/22 05/29/22 Rx mcg/actuation nasal allergy symptoms #9.9 mL spray,suspension lisinopril 10 mg tablet 10 mg PO DAILY #30 tabs 01/31/20 05/29/22 05/31/22 Rx metoprolol succinate 25 mg 12.5 mg PO DAILY #45 tabs 01/31/20 05/29/22 06/01/22 11:00 Rx tablet,extended release 24 hr Lactobacillus acidophilus 100 mg 1,000 mmu cells PO BID 01/27/22 05/29/22 05/29/22 History (1 billion cell) capsule calcium carbonate 600 mg calcium 600 mg PO DAILY 01/27/22 05/29/22 05/29/22 History (1,500 mg) tablet (Calcium) cholecalciferol (vitamin D3) 250 250 mcg PO DAILY 01/27/22 05/29/22 05/29/22 History mcg (10,000 unit) capsule folic acid 400 mcg tablet 0.4 mg PO DAILY 01/27/22 05/29/22 05/29/22 History vitamin E (dl, acetate) 450 mg 450 mg PO DAILY 01/27/22 05/29/22 05/29/22 History (1,000 unit) capsule zinc acetate 50 mg (zinc) capsule 50 mg PO DAILY 01/27/22 05/29/22 05/31/22 History (Galzin) allopurinol 300 mg tablet 300 mg PO DAILY 02/20/22 05/29/22 05/31/22 History escitalopram oxalate 10 mg tablet 10 mg PO DAILY 02/20/22 05/29/22 05/29/22 History budesonide 0.5 mg/2 mL suspension 0.5 mg inhalation BID PRN 04/13/22 05/29/22 05/31/22 History for nebulization Shortness Of Breath ondansetron 4 mg disintegrating 4 - 8 mg PO Q4H PRN Nausea And 05/20/22 05/29/22 05/29/22 History tablet Vomiting spironolactone 100 mg tablet 100 mg PO QAM 05/20/22 05/29/22 05/29/22 History furosemide 40 mg tablet (Lasix) 40 mg PO DAILY PRN edema #30 tabs 05/21/22 05/29/22 05/30/22 Rx pantoprazole 40 mg tablet,delayed 40 mg PO BID 30 days #60 tabs 05/21/22 05/29/22 05/31/22 Rx release sucralfate 1 gram tablet 1 g PO BID 4 weeks #56 tabs 05/21/22 05/29/22 05/31/22 Rx Allergies Allergy/AdvReac Type Severity Reaction Status Date / Time Sulfa (Sulfonamide Allergy Unknown RASH Verified 05/29/22 12:34 Antibiotics) Anticoagulation AdvReac Severe Unknown Uncoded 05/29/22 12:34 Current Medications Generic Name Dose Route Start Last Admin Trade Name Freq PRN Reason Stop Dose Admin Sodium Chloride 1,000 mls @ 30 mls/hr 06/01/22 13:00 06/01/22 13:32 Sodium Chloride 0.9% IV 06/02/22 12:59 30 mls/hr .Q24H LUIS ANGEL Administration PFSH Anesthesia Medical History Abdominal ascites Abdominal ascites Afib Anemia CHF (congestive heart failure) CKD (chronic kidney disease) Hypertension Idiopathic cirrhosis Liver cirrhosis RICA on CPAP Prostate CA Surgical History History of colonoscopy History of total right hip replacement Hx of abdominal prostatectomy Hx of knee surgery Family History Family/Other Cancer Heart disease Social History Smoking and tobacco status: never smoked Second hand smoke exposure: No Alcohol intake: never Household members: spouse Marital status: service: No Current occupational status: retired History of recent travel: No Current gender identity: Male Data Anesthesia 06/01/22 13:29 Cardiac Studies: Echocardiogram 04/14/22
[2022-06-01 13:55] LABS: Blood Urea Nitrogen 23 mg/dL (8-23); Calcium 9.4 mg/dL (8.5-10.5); Carbon Dioxide 32 mmol/L (22-29); Chloride 98 mmol/L (98-107); Glucose 93 mg/dL (65-115); Osmolality Calculated 289 mOsm/kg (285-295); Sodium 138 mmol/L (136-145)
[2022-06-01 14:01] LABS: Anion Gap 12.4 (5-19); Potassium 4.4 mmol/L (3.5-5.1)
--- NOTE | 2022-06-01 14:38 | W.PM.OPSUD ---
Surgery/Procedure H&P Update DATE OF PROCEDURE: June 01, 2022 DATE H&P PERFORMED: 05/29/22 PLANNED PROCEDURE: Operation Date: 06/01/22 14:35 Proposed Procedures p lap peritoneal drain placement 62398, R18.8(Not Applicable) - Stevie Blount DO
[2022-06-01] MEDS: ceFAZolin 2,000 MG in sodium chloride 0.9% (plus) 50 ML 100 MG IV (15:05)
--- NOTE | 2022-06-01 15:47 | PM.OP ---
Operative Report Date of procedure: June 01, 2022 Pre-op diagnosis: Preop Diagnosis Liver failure Post-op diagnosis: same Procedure done: Laparoscopic peritoneal drain placement Implants: Peritoneal drainage catheter Surgeon: Dr. Stevie Blount DO Anesthesia: General Estimated blood loss (mL): 5 Complications: None apparent Brief History: This is a very pleasant 82-year-old gentleman who is on hospice with liver failure. He desires peritoneal drainage at home. Laparoscopic peritoneal drain placement is indicated. The risks and benefits were explained and documented. Procedure: Patient was wheeled in the operative room and placed on the OR table in supine position. The abdomen was inspected prepped and draped in usual sterile fashion. A timeout was performed all present were in agreement. A Veress needle was placed in the left upper quadrant and intra-abdominal insufflation was brought to 15 mmHg. A 5 mm trocar was then placed into the site using Optiview. A second 5 mm trocar was placed in the left lower quadrant. An 8 mm trocar was then placed just left of the umbilicus and tunneled subcutaneously and then preperitoneal he down to the pelvis. This was done under direct visualization. A peritoneal dialysis catheter was then fed through this trocar down into the pelvis. Both cuffs were noted to be subcutaneously and preperitoneum only. 400 cc of thin yellow peritoneal fluid was suctioned through the catheter. The catheter appeared in good working order. Ports were removed. A 2-0 Ethilon suture was used to suture the catheter in place. Skin was closed using 4-0 Monocryl in a subcutaneous fashion. Dermabond was applied. Patient tolerated the procedure well.
--- NOTE | 2022-06-01 16:11 | SUR.PHASEI ---
1550 PT TO PACU 5 PT AWAKE ALERT ORIENTED TO SELF AND PLACE, GOOD RESP EFFORT NOTED ABDOMEN SOFT ROUNDED WITH 3 SITES 2 WITH SKIN GLUE,4X4 TO DRAIN SITE, MONITOR A FIB WITH NO ECTOPY NOTED IV TO LT WRIST #20 WITH 200 ML NS UP AT KVO RATE PER GRAVITY, BILAT SCDS ON AND WORKING.
[2022-06-01] MEDS: oxyCODONE 5 mg IR Tab/Cap PO ×2 (16:48→17:11)
--- NOTE | 2022-06-01 17:12 | PC.NURSE ---
pt sent home with [address] Blount's order. Pts pharmacy in [facility] is closed already.
--- NOTE | 2022-06-01 17:15 | ANE.PACU2 ---
Inpatient post-anesthesia follow up: Airway intact: Yes Vital signs: Temperature 98.4 F Pulse Rate 72 Respiratory Rate 18 Blood Pressure 99/71 Pulse Oximetry 93 Oxygen Delivery Me thod Room Air Oxygen Flow Rate 8 Fraction of Inspir ed Oxygen Hydration adequate: Yes Nausea and vomiting: No Pain level: 1 Mental status: Baseline
== END 2022-06-01 17:44 | disposition home or self-care (01) ==
PROVIDERS: Anesthesiology; PCP Nurse Practitioner Family; Visit Provider Surgery
PROC: 0WHG43Z Insertion of Infusion Device into Peritoneal Cavity, Percutaneous Endoscopic Approach (ICD-10-PCS; CPT 49324; principal; 2022-06-01 14:25)
DX: K72.90 Hepatic failure, unspecified without coma (principal); I48.91 Unspecified atrial fibrillation; I25.10 Atherosclerotic heart disease of native coronary artery without angina pectoris; I25.2 Old myocardial infarction; K21.9 Gastro-esophageal reflux disease without esophagitis; G47.33 Obstructive sleep apnea (adult) (pediatric); I13.0 Hypertensive heart and chronic kidney disease with heart failure and stage 1 through stage 4 chronic kidney disease, or unspecified chronic kidney disease; N18.9 Chronic kidney disease, unspecified; I50.9 Heart failure, unspecified; Z85.46 Personal history of malignant neoplasm of prostate
CPT/HCPCS: 49418; 36415; 80048; J0690; J2405; J2704; J2710; J3010; J3490; J7030